=== PATIENT | male | born 1950 | race Caucasian/White ===

== ENCOUNTER 2020-11-09 22:08 | Inpatient (IN) | payer MEDICARE, OTHER ==
[2020-11-09] MEDS ORDERED: Atropine Sulfate 1 mg/10 ml Syringe ONE (22:44)
--- NOTE | 2020-11-09 22:58 | RAD ---
RADIOGRAPH CHEST 1 VIEW: DATE: 11/09/2020 TIME: 10:43 PM HISTORY: 70-year-old male with dyspnea COMPARISON: 08/05/2006 FINDINGS: New mild infiltrate at right medial base. Questionable mild infiltrate at the left medial base. No cardiomegaly. No pneumothorax. No pulmonary edema. IMPRESSION: Right basilar infiltrate: Suggestive of mild or early pneumonia
[2020-11-09 23:04] LABS: ALT (SGPT) 11 U/L (8-55); AST (SGOT) 17 U/L (5-34); Albumin 3.3 g/dL (3.4-4.8); Alkaline Phosphatase 49 U/L (40-110); Anion Gap 13 mmol/L (10-20); BUN (Urea Nitrogen) 18 mg/dL (8.4-25.7); Bilirubin, Total 0.8 mg/dL (0.2-1.2); Calc. Creatinine Clearance 0 mL/min (70-130); Calcium 7.9 mg/dL (7.8-10.44); Carbon Dioxide 26 mmol/L (23-31); Chloride 102 mmol/L (98-107); Globulin 2.9 g/dL (2.4-3.5); Glucose 130 mg/dL (80-115); Lipase 93 U/L (8-78); Magnesium 1.3 mg/dL (1.6-2.6); Potassium 3.7 mmol/L (3.5-5.1); Protein, Total 6.2 g/dL (5.8-8.1); Sodium 137 mmol/L (136-145)
[2020-11-09 23:09] LABS: Digoxin 0.97 ng/mL (0.8-2.0)
[2020-11-09 23:33] LABS: CKMB 2.1 ng/mL (0-6.6)
[2020-11-10] MEDS ORDERED: cloNIDine 0.1 MG TAB ONE (00:25)
[2020-11-10] MEDS ORDERED: Ondansetron PF 4 MG/2 ML Vial IVP PRN (01:17)
[2020-11-10] MEDS ORDERED: Dextrose 50% Abboject 50 ML SYRINGE SLOW IVP PRN (01:17)
[2020-11-10] MEDS ORDERED: HYDROcodone/Acetaminophen 7.5/325 mg Tablet PO PRN (01:17)
[2020-11-10] MEDS ORDERED: Dextrose 5% in Water 1,000 ML IV PRN (01:17)
[2020-11-10] MEDS ORDERED: Guaifenesin DM 100-10/5 ML UDCUP PO PRN (01:17)
[2020-11-10] MEDS ORDERED: Bisacodyl 5 MG TAB PO PRN (01:17)
[2020-11-10] MEDS ORDERED: hydrALAZINE 20 MG/ML VIAL SLOW IVP PRN (01:24)
--- NOTE | 2020-11-10 01:29 | PDOC.HHP ---
Hospitalist HPI Cough History of Present Illness: 70-year-old male with past medical history of hypertension, diabetes mellitus type 2, Parkinson's disease, alf resident since the last 1 year admitted from alf today because of reported shortness of breath. Patient denies worsening shortness of breath. He admits to cough which he states started today. He denies any sputum. He denies any sick contact. He denies any fever or chills. On arrival in the ED chest x-ray shows right basilar infiltrate. Patient has been admitted for pneumonia rule out Covid infection. He denies any nausea vomiting now. Allergies/Adverse Reactions: Allergy/AdvReac Type Severity Reaction Status Date / Time No Known Allergies Allergy Unverified 11/10/20 01:25 Past History: PMHx: Parkinson's disease Diabetes mellitus Hypertension PSHx: Noncontributory FHx: Family history of hypertension Social: custodial resident, denies any tobacco or alcohol use Hospitalist HPI ROS All other systems reviewed; all pertinent +/- noted in HPI/Subj (All others x14 - except as mentioned above.) Hospitalist Exam General Appearance: NAD, ill appearing General - other findings: Elderly male, calm, on room air Eye: PERRL, anicteric sclera ENT: normocephalic atraumatic, no oropharyngeal lesions Neck: supple, symmetric, no JVD Heart: RRR, no murmur, no gallops Respiratory: normal chest expansion, no tachypnea Gastrointestinal: soft, non-tender Extremities: no cyanosis, no clubbing Skin: normal turgor, no lesions Neurological: cranial nerve grossly intact, normal sensation to touch Musculoskeletal: normal tone, normal strength Psychiatric: normal affect, normal behavior Psychiatric - other findings: tremors of hands Hospitalist Results Result Diagrams: 11/09/20 22:39 Lab results: Laboratory Last Values Sodium 137 mmol/L (136-145) 11/09/20 22:39 Potassium 3.7 mmol/L (3.5-5.1) 11/09/20 22:39 Chloride 102 mmol/L (98-107) 11/09/20 22:39 Carbon Dioxide 26 mmol/L (23-31) 11/09/20 22:39 Anion Gap 13 mmol/L (10-20) 11/09/20 22:39 BUN 18 mg/dL (8.4-25.7) 11/09/20 22:39 Creatinine 1.10 mg/dL (0.7-1.3) 11/09/20 22:39 Estimated GFR (MDRD) 67 11/09/20 22:39 Glucose 130 mg/dL (80-115) H 11/09/20 22:39 Calcium 7.9 mg/dL (7.8-10.44) 11/09/20 22:39 Magnesium 1.3 mg/dL (1.6-2.6) L 11/09/20 22:39 Total Bilirubin 0.8 mg/dL (0.2-1.2) 11/09/20 22:39 AST 17 U/L (5-34) 11/09/20 22:39 ALT 11 U/L (8-55) 11/09/20 22:39 Alkaline Phosphatase 49 U/L (40-110) 11/09/20 22:39 CK-MB (CK-2) 2.1 ng/mL (0-6.6) 11/09/20 22:39 Troponin I 0.034 ng/mL (< 0.028) H 11/09/20 22:39 B-Natriuretic Peptide 417.0 pg/mL (0-100) H 11/09/20 22:39 Serum Total Protein 6.2 g/dL (5.8-8.1) 11/09/20 22:39 Albumin 3.3 g/dL (3.4-4.8) L 11/09/20 22:39 Globulin 2.9 g/dL (2.4-3.5) 11/09/20 22:39 Albumin/Globulin Ratio 1.1 g/dL (1.2-2.2) L 11/09/20 22:39 Lipase 93 U/L (8-78) H 11/09/20 22:39 TSH 3rd Generation 3.4953 uIU/mL (0.35-4.94) 11/09/20 22:39 Digoxin 0.97 ng/mL (0.8-2.0) 11/09/20 22:39 Hospitalist H&P A/P (1) Parkinsons disease Code(s): G20 - PARKINSON'S DISEASE Status: Acute (2) Right lower lobe pneumonia Code(s): J18.9 - PNEUMONIA, UNSPECIFIED ORGANISM Status: Acute (3) Hypertensive urgency Code(s): I16.0 - HYPERTENSIVE URGENCY Status: Acute (4) Diabetes mellitus Code(s): E11.9 - TYPE 2 DIABETES MELLITUS WITHOUT COMPLICATIONS Status: Acute Plan: #Right base pneumoniapossibly due to community-acquired pneumonia versus Covid infection Given alf resident, will place in isolation protocol for now Obtain Covid screening Start up required to biotics with Rocephin and Zithromax Do supplemental oxygen as needed Continue to monitor pulse ox We will admit to telemetry under observation Obtain pending CBC, influenza screen as well as blood culture We will also obtain sputum culture for sensitivity Hypertensive urgencyasymptomatic Given mild bradycardia, will start patient on hydralazine Obtain home medication regimen and adjust History of Parkinson'sresume home meds Diabetes mellituswe will do insulin sliding scale with Accu-Cheks for now DVT prophylaxissubcutaneous Lovenox Advanced directivepatient requesting trial of CPR Dispositionpossible hospital stay for 24 to 48 hours, may be able to DC back to alf if negative Covid as well as still not requiring supplemental oxygen in the next 24 hours
[2020-11-10] MEDS ORDERED: hydrALAZINE 25 MG TAB PO SCH (01:30)
[2020-11-10 02:34] LABS: Troponin I 0.038 ng/mL (< 0.028)
[2020-11-10 03:27] LABS: SARS-CoV-2 NAA Rapid Test DETECTED (NotDetected)
[2020-11-10] MEDS ORDERED: cefTRIAXone\\ROCEPHIN 1 GM VIAL ONE (03:51)
[2020-11-10] MEDS: cefTRIAXone\\ROCEPHIN 1 GM in Sodium Chloride 0.9% 100 ML IVPB SCH (04:16)
[2020-11-10 04:44] LABS: #Eosinphils 0.1 thou/uL (0.0-0.7); #Lymphocytes 0.9 thou/uL (1.20-3.40); #Monocytes 0.4 thou/uL (0.11-0.59); #Neutrophils 3.8 thou/uL (1.40-6.50); %Basophils 0.3 % (0.0-1.0); %Lymphocytes 16.7 % (21.0-51.0); %Monocytes 7.1 % (0.0-10.0); %Neutrophils 73.9 % (42.0-75.0); Hemoglobin 9.3 g/dL (14.0-18.0); Mean Corpuscular HGB CONC 33.2 g/dL (32.0-36.0); Mean Corpuscular Hemoglobin 29.1 pg (27.0-31.0); Mean Corpuscular Volume 87.6 fL (78.0-98.0); Mean Platelet Volume 8.7 fL (7.4-10.4); Platelet Count 189 thou/uL (130-400); RBC Distribution Width 14.3 % (11.5-14.5); Red Blood Cell (RBC) Count 3.19 mill/uL (4.70-6.10); White Blood Cell (WBC) Count 5.1 thou/uL (4.8-10.8)
[2020-11-10 05:09] LABS: Anion Gap 11 mmol/L (10-20); BUN (Urea Nitrogen) 17 mg/dL (8.4-25.7); Calc. Creatinine Clearance 0 mL/min (70-130); Calcium 8.2 mg/dL (7.8-10.44); Carbon Dioxide 28 mmol/L (23-31); Chloride 103 mmol/L (98-107); Glucose 141 mg/dL (80-115); Potassium 3.6 mmol/L (3.5-5.1); Sodium 138 mmol/L (136-145)
[2020-11-10 05:32] LABS: Troponin I 0.037 ng/mL (< 0.028)
[2020-11-10] MEDS ORDERED: Azithromycin 500 MG VIAL ONE (06:29)
[2020-11-10] MEDS: Azithromycin 500 MG in Sodium Chloride 0.9% 250 ML 250 ML IVPB SCH (06:35)
[2020-11-10] MEDS ORDERED: Famotidine 20 MG TAB ONE (08:42)
[2020-11-10] MEDS ORDERED: Enoxaparin Sodium 40 MG/0.4 ML SYRINGE ONE (08:42)
[2020-11-10] MEDS ORDERED: hydrALAZINE 25 MG TAB ONE ×2 (08:42→16:08)
[2020-11-10] MEDS: Enoxaparin Sodium 40 MG/0.4 ML SYRINGE SC SCH (08:49)
[2020-11-10] MEDS: hydrALAZINE 25 MG TAB PO SCH ×3 (08:49→21:03)
[2020-11-10] MEDS ORDERED: Famotidine 20 MG TAB PO SCH (09:00)
[2020-11-10] MEDS: Zinc Sulfate 220 MG CAP PO SCH (09:56)
[2020-11-10] MEDS: guaiFENesin ER 600 MG TAB PO SCH ×2 (10:29→21:02)
[2020-11-10] MEDS ORDERED: hydrALAZINE 20 MG/ML VIAL ONE ×2 (11:10→16:26)
[2020-11-10] MEDS ORDERED: Amlodipine 5 MG TAB PO SCH (12:30)
[2020-11-10] MEDS ORDERED: Amlodipine 5 MG TAB ONE (13:33)
[2020-11-10] MEDS ORDERED: HumaLOG 300 UNITS/3 ML VIAL ONE (16:33)
[2020-11-10] MEDS: HumaLOG 300 UNITS/3 ML VIAL SC PRN (16:38)
--- NOTE | 2020-11-10 16:38 | PDOC.HOSPP ---
- Subjective Encounter Date: 11/10/20 (f/u bradycardia) Encounter Time: 16:35 Subjective: Pt remains in the ER awaiting a telemetry bed. Throughout today bp's have been as high as 200's systolic. Pulse has generally been 40's and sinus. Pt reports at the NH that he hasn't felt well - describes it as a change in stool, but not diarrhea. Some feeling like he is going to throw up. He is unable to describe anything else. He currently denies any problems. - Objective Vital Signs & Weight: Vital Signs (12 hours) Temp Pulse Resp BP BP Pulse Ox 11/10/20 16:25 55 L 16 206/101 H 98 11/10/20 16:22 54 L 204/101 H 11/10/20 13:44 54 L 212/87 H 11/10/20 13:43 54 L 212/87 H 11/10/20 12:00 47 L 177/78 H 11/10/20 11:28 44 L 202/85 H 11/10/20 11:24 98 F 44 L 16 187/81 H 100 11/10/20 08:49 47 L 171/66 H 11/10/20 07:50 98.4 F 47 L 14 168/75 H 100 Result Diagrams: 11/10/20 04:33 11/10/20 04:33 Additional Labs: Accuchecks 11/10/20 11/10/20 16:17 11:16 POC Glucose 192 H 128 H EKG Reviewed by me: Yes (tele - sinus 40-50's) Hospitalist ROS - Medication Medications: Active Medications Generic Name Dose Route Start Last Admin Trade Name Cristopher PRN Reason Stop Dose Admin Enoxaparin Sodium 40 mg 11/10/20 09:00 11/10/20 08:49 Enoxaparin Sodium 40 Mg/0.4 Ml Syringe SC 40 mg 0900 MELVIN Administration Guaifenesin 1,200 mg 11/10/20 09:00 11/10/20 10:29 Guaifenesin Er 600 Mg Tab PO 1,200 mg Q12HR MELVIN Administration Hydralazine HCl 75 mg 11/10/20 09:00 11/10/20 16:22 Hydralazine 25 Mg Tab PO 75 mg TID MELVIN Administration Ceftriaxone Sodium 1 gm/ 100 mls @ 200 mls/hr 11/10/20 01:30 11/10/20 04:16 Sodium Chloride IVPB 100 mls Q24HR MELVIN Administration Azithromycin 500 mg/ Sodium 250 mls @ 250 mls/hr 11/10/20 02:00 11/10/20 06:35 Chloride IVPB 250 mls Q24HR MELVIN Administration Sodium Chloride 10 ml 11/10/20 09:00 11/10/20 08:50 Flush - Normal Saline 10 Ml Syringe IVF 10 ml Q12HR MELVIN Administration Zinc Sulfate 220 mg 11/10/20 09:00 11/10/20 09:56 Zinc Sulfate 220 Mg Cap PO 220 mg DAILY MELVIN Administration Hospitalist Exam Vitals: Vital Signs (12 hours) Temp Pulse Resp BP BP Pulse Ox 11/10/20 16:25 55 L 16 206/101 H 98 11/10/20 16:22 54 L 204/101 H 11/10/20 13:44 54 L 212/87 H 11/10/20 13:43 54 L 212/87 H 11/10/20 12:00 47 L 177/78 H 11/10/20 11:28 44 L 202/85 H 11/10/20 11:24 98 F 44 L 16 187/81 H 100 11/10/20 08:49 47 L 171/66 H 11/10/20 07:50 98.4 F 47 L 14 168/75 H 100 General Appearance: NAD Heart: RRR, no murmur Respiratory: CTAB, no wheezes, no rales, no ronchi Gastrointestinal: soft, non-tender, non-distended, normal bowel sounds Extremities: no cyanosis, no clubbing Extremities - other findings: 1+ edema bilateral Psychiatric: normal affect Hosp A/P (1) Right lower lobe pneumonia Code(s): J18.9 - PNEUMONIA, UNSPECIFIED ORGANISM Status: Acute (2) COVID-19 virus infection Code(s): U07.1 - COVID-19 Status: Acute (3) Bradycardia Code(s): R00.1 - BRADYCARDIA, UNSPECIFIED Status: Acute (4) Diabetes mellitus Code(s): E11.9 - TYPE 2 DIABETES MELLITUS WITHOUT COMPLICATIONS Status: Chronic Qualifiers: Diabetes mellitus type: type 2 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 - continue hydralazine oral - resume losartan - amlodipine added today - prn IV hydralazine DM - appears controlled - hold on lantus as his blood sugars are well controlled parkinsons disease - ordered home med - uncertain if this is available here dyslipidemia - continue statin Anemia - uncertain etiology and chronicity - trend hemoglobin here and if stable defer evaluation to the outpatient setting dvt prophy - lovenox gi prophy - not indicated code status full reviewed plan of care with patient, no questions or further needs at end of ev al.
[2020-11-10] MEDS: hydrALAZINE 20 MG/ML VIAL SLOW IVP PRN (17:41)
[2020-11-10] MEDS ORDERED: Losartan 25 MG TAB PO SCH (17:45)
[2020-11-10 18:45] VITALS: BMI 28.4
[2020-11-10] MEDS: Gabapentin 100 MG CAP PO SCH (21:00)
[2020-11-10] MEDS ORDERED: (Cariprazine Hcl [Vraylar] 1.5 MG Capsule) PO SCH (21:00)
[2020-11-10] MEDS: Rosuvastatin 20 MG TAB PO SCH (21:01)
[2020-11-10] MEDS: PARoxetine 20 MG TAB PO SCH (21:03)
[2020-11-10] MEDS: Amlodipine 5 MG TAB PO SCH (21:05)
[2020-11-11] MEDS: cefTRIAXone\\ROCEPHIN 1 GM in Sodium Chloride 0.9% 100 ML IVPB SCH (00:51)
[2020-11-11] MEDS: hydrALAZINE 20 MG/ML VIAL SLOW IVP PRN ×2 (00:51→13:01)
[2020-11-11] MEDS: Azithromycin 500 MG in Sodium Chloride 0.9% 250 ML 250 ML IVPB SCH (02:12)
[2020-11-11] MEDS: Amlodipine 5 MG TAB PO SCH ×2 (03:13→21:37)
[2020-11-11 06:22] LABS: #Eosinphils 0.1 thou/uL (0.0-0.7); #Lymphocytes 0.9 thou/uL (1.20-3.40); #Monocytes 0.5 thou/uL (0.11-0.59); %Basophils 0.1 % (0.0-1.0); %Eosinophils 1.4 % (0.0-10.0); %Lymphocytes 9.2 % (21.0-51.0); %Monocytes 4.7 % (0.0-10.0); %Neutrophils 84.5 % (42.0-75.0); Hemoglobin 9.3 g/dL (14.0-18.0); Mean Corpuscular Hemoglobin 29.5 pg (27.0-31.0); Mean Corpuscular Volume 86.7 fL (78.0-98.0); Mean Platelet Volume 8.3 fL (7.4-10.4); Platelet Count 234 thou/uL (130-400); RBC Distribution Width 14.9 % (11.5-14.5); Red Blood Cell (RBC) Count 3.15 mill/uL (4.70-6.10); White Blood Cell (WBC) Count 9.5 thou/uL (4.8-10.8)
[2020-11-11] MEDS: HumaLOG 300 UNITS/3 ML VIAL SC PRN ×3 (06:28→16:20)
[2020-11-11] MEDS: Levothyroxine Sodium 50 MCG TAB PO SCH (06:30)
[2020-11-11 06:37] LABS: Anion Gap 16 mmol/L (10-20); BUN (Urea Nitrogen) 16 mg/dL (8.4-25.7); Calc. Creatinine Clearance 76 mL/min (70-130); Calcium 8.5 mg/dL (7.8-10.44); Carbon Dioxide 25 mmol/L (23-31); Chloride 102 mmol/L (98-107); Glucose 211 mg/dL (80-115); Potassium 3.8 mmol/L (3.5-5.1); Sodium 139 mmol/L (136-145)
[2020-11-11] MEDS: Zinc Sulfate 220 MG CAP PO SCH (07:34)
[2020-11-11] MEDS: hydrALAZINE 25 MG TAB PO SCH ×3 (07:34→21:39)
[2020-11-11] MEDS: Enoxaparin Sodium 40 MG/0.4 ML SYRINGE SC SCH (07:35)
[2020-11-11] MEDS: Losartan 25 MG TAB PO SCH (07:35)
[2020-11-11] MEDS: guaiFENesin ER 600 MG TAB PO SCH ×2 (07:35→21:39)
--- NOTE | 2020-11-11 08:04 | PDOC.HOSPP ---
- Subjective Encounter Date: 11/11/20 Encounter Time: 07:55 Subjective: alert, no cough, fever, sob - Objective Vital Signs & Weight: Vital Signs (12 hours) Temp Pulse Resp BP BP Pulse Ox 11/11/20 07:34 66 158/74 H 11/11/20 06:05 18 11/11/20 06:00 98.3 F 66 18 158/74 H 98 11/11/20 05:58 98.3 F 66 18 158/74 H 98 11/11/20 04:00 98.5 F 76 25 H 192/88 H 100 11/11/20 03:13 72 192/84 H 11/11/20 03:00 192/80 H 11/11/20 02:00 97.9 F 72 20 192/84 H 98 11/11/20 01:17 97 11/11/20 01:00 63 20 97 11/11/20 00:51 62 11/11/20 00:00 97.8 F 65 18 208/75 H 97 11/10/20 23:00 98.0 F 11/10/20 21:05 62 11/10/20 21:03 62 11/10/20 20:00 97.9 F 89 20 190/86 H 199/83 H 99 Weight Admit Weight 204 lb Weight 204 lb I&O: 11/10/20 11/11/20 11/12/20 06:59 06:59 06:59 Intake Total 280 Output Total 900 Balance -620 Result Diagrams: 11/11/20 05:51 11/11/20 05:51 Additional Labs: Accuchecks 11/11/20 11/10/20 11/10/20 05:53 19:50 16:17 POC Glucose 205 H 198 H 192 H 11/10/20 11:16 POC Glucose 128 H Hospitalist ROS - Medication Medications: Active Medications Generic Name Dose Route Start Last Admin Trade Name Freq PRN Reason Stop Dose Admin Amlodipine Besylate 5 mg 11/10/20 21:00 11/11/20 03:13 Amlodipine 5 Mg Tab PO 5 mg BID MELVIN Administration Enoxaparin Sodium 40 mg 11/10/20 09:00 11/11/20 07:35 Enoxaparin Sodium 40 Mg/0.4 Ml Syringe SC 40 mg 09 MELVIN Administration Gabapentin 100 mg 11/10/20 21:00 11/10/20 21:00 Gabapentin 100 Mg Cap PO 100 mg HS MELVIN Administration Guaifenesin 1,200 mg 11/10/20 09:00 11/11/20 07:35 Guaifenesin Er 600 Mg Tab PO 1,200 mg Q12HR MELVIN Administration Hydralazine HCl 75 mg 11/10/20 09:00 11/11/20 07:34 Hydralazine 25 Mg Tab PO 75 mg TID MELVIN Administration Hydralazine HCl 20 mg 11/10/20 12:24 11/11/20 00:51 Hydralazine 20 Mg/Ml Vial SLOW IVP 20 mg Q4H PRN Administration SBP Greater Than 180 Ceftriaxone Sodium 1 gm/ 100 mls @ 200 mls/hr 11/10/20 01:30 11/11/20 00:51 Sodium Chloride IVPB 100 mls Q24HR MELVIN Administration Azithromycin 500 mg/ Sodium 250 mls @ 250 mls/hr 11/10/20 02:00 11/11/20 02:12 Chloride IVPB 250 mls Q24HR MELVIN Administration Insulin Human Lispro 0 units 11/10/20 01:17 11/11/20 06:28 Humalog 300 Units/3 Ml Vial SC 4 unit .MODERATE SLIDING SC PRN Administration Moderate Correctional Scale Levothyroxine Sodium 50 mcg 11/11/20 06:00 11/11/20 06:30 Levothyroxine Sodium 50 Mcg Tab PO 50 mcg 0600 MELVIN Administration Losartan Potassium 25 mg 11/11/20 09:00 11/11/20 07:35 Losartan 25 Mg Tab PO 25 mg DAILY MELVIN Administration Paroxetine HCl 40 mg 11/10/20 21:00 11/10/20 21:03 Paroxetine 20 Mg Tab PO 40 mg HS MELVIN Administration Rosuvastatin Calcium 20 mg 11/10/20 21:00 11/10/20 21:01 Rosuvastatin 20 Mg Tab PO 20 mg HS MELVIN Administration Sodium Chloride 10 ml 11/10/20 09:00 11/11/20 07:36 Flush - Normal Saline 10 Ml Syringe IVF 10 ml Q12HR MELVIN Administration Zinc Sulfate 220 mg 11/10/20 09:00 11/11/20 07:34 Zinc Sulfate 220 Mg Cap PO 220 mg DAILY MELVIN Administration Hospitalist Exam Vitals: Vital Signs (12 hours) Temp Pulse Resp BP BP Pulse Ox 11/11/20 07:34 66 158/74 H 11/11/20 06:05 18 11/11/20 06:00 98.3 F 66 18 158/74 H 98 11/11/20 05:58 98.3 F 66 18 158/74 H 98 11/11/20 04:00 98.5 F 76 25 H 192/88 H 100 11/11/20 03:13 72 192/84 H 11/11/20 03:00 192/80 H 11/11/20 02:00 97.9 F 72 20 192/84 H 98 11/11/20 01:17 97 11/11/20 01:00 63 20 97 11/11/20 00:51 62 11/11/20 00:00 97.8 F 65 18 208/75 H 97 11/10/20 23:00 98.0 F 11/10/20 21:05 62 11/10/20 21:03 62 11/10/20 20:00 97.9 F 89 20 190/86 H 199/83 H 99 Weight Admit Weight 204 lb Weight 204 lb General Appearance: awake alert Neck: no JVD Heart: RRR, no murmur Respiratory - other findings: coarse rales RL chest, OW clear BS Gastrointestinal: soft, normal bowel sounds Extremities: no edema Hosp A/P (1) Anemia Code(s): D64.9 - ANEMIA, UNSPECIFIED Status: Acute Qualifiers: Anemia type: unspecified type Qualified Code(s): D64.9 - Anemia, unspecified (2) Bradycardia Code(s): R00.1 - BRADYCARDIA, UNSPECIFIED Status: Acute (3) COVID-19 virus infection Code(s): U07.1 - COVID-19 Status: Acute (4) Hypertensive urgency Code(s): I16.0 - HYPERTENSIVE URGENCY Status: Acute (5) Right lower lobe pneumonia Code(s): J18.9 - PNEUMONIA, UNSPECIFIED ORGANISM Status: Acute Qualifiers: Pneumonia type: due to Pneumococcus Qualified Code(s): J13 - Pneumonia due to Streptococcus pneumoniae (6) Diabetes mellitus Code(s): E11.9 - TYPE 2 DIABETES MELLITUS WITHOUT COMPLICATIONS Status: Chronic Qualifiers: Diabetes mellitus type: type 2 Diabetes mellitus fpc insulin use: with fpc use Diabetes mellitus complication status: without complication Qualified Code(s): E11.9 - Type 2 diabetes mellitus without complications; Z79.4 - laborer marine terminal (current) use of insulin (7) Dyslipidemia Code(s): E78.5 - HYPERLIPIDEMIA, UNSPECIFIED Status: Chronic (8) Parkinsons disease Code(s): G20 - PARKINSON'S DISEASE Status: Chronic - Plan COVID- no sob, etc-watch RLL PNA-cont current antibx x 72 hrs bradycardia resolved off metoprolol HTN- cont current tx, monitor BP DM 2- cont accu/ss/ lantus held at present
[2020-11-11] MEDS ORDERED: Amlodipine 5 MG TAB PO SCH (09:00)
[2020-11-11] MEDS: Acetaminophen 325 MG TAB PO PRN (13:00)
[2020-11-11] MEDS: Gabapentin 100 MG CAP PO SCH (21:39)
[2020-11-11] MEDS: PARoxetine 20 MG TAB PO SCH (21:40)
[2020-11-11] MEDS: Rosuvastatin 20 MG TAB PO SCH (21:40)
[2020-11-12] MEDS: hydrALAZINE 20 MG/ML VIAL SLOW IVP PRN ×2 (00:35→12:55)
[2020-11-12] MEDS: cefTRIAXone\\ROCEPHIN 1 GM in Sodium Chloride 0.9% 100 ML IVPB SCH (03:40)
[2020-11-12] MEDS: Azithromycin 500 MG in Sodium Chloride 0.9% 250 ML 250 ML IVPB SCH (03:41)
[2020-11-12] MEDS: Levothyroxine Sodium 50 MCG TAB PO SCH (06:29)
[2020-11-12] MEDS: Enoxaparin Sodium 40 MG/0.4 ML SYRINGE SC SCH (07:49)
[2020-11-12] MEDS: Amlodipine 5 MG TAB PO SCH ×2 (07:49→20:37)
[2020-11-12] MEDS: hydrALAZINE 25 MG TAB PO SCH ×3 (07:49→20:34)
[2020-11-12] MEDS: guaiFENesin ER 600 MG TAB PO SCH ×2 (07:49→20:37)
[2020-11-12] MEDS: Losartan 25 MG TAB PO SCH (07:50)
[2020-11-12] MEDS: Zinc Sulfate 220 MG CAP PO SCH (07:50)
--- NOTE | 2020-11-12 12:23 | PDOC.HOSPP ---
- Subjective Encounter Date: 11/12/20 Encounter Time: 12:23 Subjective: minimal BAEZ, dry cough - Objective Vital Signs & Weight: Vital Signs (12 hours) Temp Pulse Resp BP BP BP Pulse Ox 11/12/20 11:02 98.2 F 81 16 200/86 H 97 11/12/20 08:00 98.6 F 78 20 163/72 H 96 11/12/20 07:49 86 11/12/20 03:58 98.6 F 86 20 180/76 H 97 11/12/20 03:09 94 L 11/12/20 00:35 77 189/79 H Weight Admit Weight 204 lb Weight 204 lb I&O: 11/11/20 11/12/20 11/13/20 06:59 06:59 06:59 Intake Total 280 840 Output Total 900 800 Balance -620 40 Result Diagrams: 11/11/20 05:51 11/11/20 05:51 Additional Labs: Accuchecks 11/12/20 11/12/20 11/11/20 11:01 05:54 20:14 POC Glucose 253 H 179 H 169 H 11/11/20 15:52 POC Glucose 196 H Hospitalist ROS - Medication Medications: Active Medications Generic Name Dose Route Start Last Admin Trade Name Freq PRN Reason Stop Dose Admin Acetaminophen 650 mg 11/10/20 01:17 11/11/20 13:00 Acetaminophen 325 Mg Tab PO 650 mg Q4H PRN Administration Headache/Fever/Mild Pain (1-3) Amlodipine Besylate 5 mg 11/10/20 21:00 11/12/20 07:49 Amlodipine 5 Mg Tab PO 5 mg BID MELVIN Administration Enoxaparin Sodium 40 mg 11/10/20 09:00 11/12/20 07:49 Enoxaparin Sodium 40 Mg/0.4 Ml Syringe SC 40 mg 0900 MELVIN Administration Gabapentin 100 mg 11/10/20 21:00 11/11/20 21:39 Gabapentin 100 Mg Cap PO 100 mg HS MELVIN Administration Guaifenesin 1,200 mg 11/10/20 09:00 11/12/20 07:49 Guaifenesin Er 600 Mg Tab PO 1,200 mg Q12HR MELVIN Administration Hydralazine HCl 75 mg 11/10/20 09:00 11/12/20 07:49 Hydralazine 25 Mg Tab PO 75 mg TID MELVIN Administration Hydralazine HCl 20 mg 11/10/20 12:24 11/12/20 00:35 Hydralazine 20 Mg/Ml Vial SLOW IVP 20 mg Q4H PRN Administration SBP Greater Than 180 Ceftriaxone Sodium 1 gm/ 100 mls @ 200 mls/hr 11/10/20 01:30 11/12/20 03:40 Sodium Chloride IVPB 100 mls Q24HR MELVIN Administration Azithromycin 500 mg/ Sodium 250 mls @ 250 mls/hr 11/10/20 02:00 11/12/20 03:41 Chloride IVPB 250 mls Q24HR MELVIN Administration Insulin Human Lispro 0 units 11/10/20 01:17 11/11/20 16:20 Humalog 300 Units/3 Ml Vial SC 2 unit .MODERATE SLIDING SC PRN Administration Moderate Correctional Scale Levothyroxine Sodium 50 mcg 11/11/20 06:00 11/12/20 06:29 Levothyroxine Sodium 50 Mcg Tab PO 50 mcg 0600 MELVIN Administration Losartan Potassium 25 mg 11/11/20 09:00 11/12/20 07:50 Losartan 25 Mg Tab PO 25 mg DAILY MELVIN Administration Paroxetine HCl 40 mg 11/10/20 21:00 11/11/20 21:40 Paroxetine 20 Mg Tab PO 40 mg HS MELVIN Administration Rosuvastatin Calcium 20 mg 11/10/20 21:00 11/11/20 21:40 Rosuvastatin 20 Mg Tab PO 20 mg HS MELVIN Administration Sodium Chloride 10 ml 11/10/20 09:00 11/12/20 06:29 Flush - Normal Saline 10 Ml Syringe IVF 10 ml Q12HR MELVIN Administration Zinc Sulfate 220 mg 11/10/20 09:00 11/12/20 07:50 Zinc Sulfate 220 Mg Cap PO 220 mg DAILY MELVIN Administration Hospitalist Exam Vitals: Vital Signs (12 hours) Temp Pulse Resp BP BP BP Pulse Ox 11/12/20 11:02 98.2 F 81 16 200/86 H 97 11/12/20 08:00 98.6 F 78 20 163/72 H 96 11/12/20 07:49 86 11/12/20 03:58 98.6 F 86 20 180/76 H 97 11/12/20 03:09 94 L 11/12/20 00:35 77 189/79 H Weight Admit Weight 204 lb Weight 204 lb General Appearance: awake alert Neck: no JVD Heart: RRR, no murmur Respiratory: CTAB Respiratory - other findings: except scant rales LLL Gastrointestinal: soft, normal bowel sounds Extremities: no edema Hosp A/P (1) Right lower lobe pneumonia Code(s): J18.9 - PNEUMONIA, UNSPECIFIED ORGANISM Status: Acute Qualifiers: Pneumonia type: due to Pneumococcus Qualified Code(s): J13 - Pneumonia due to Streptococcus pneumoniae (2) Anemia Code(s): D64.9 - ANEMIA, UNSPECIFIED Status: Acute Qualifiers: Anemia type: unspecified type Qualified Code(s): D64.9 - Anemia, unspecified (3) Bradycardia Code(s): R00.1 - BRADYCARDIA, UNSPECIFIED Status: Acute (4) COVID-19 virus infection Code(s): U07.1 - COVID-19 Status: Acute (5) Hypertensive urgency Code(s): I16.0 - HYPERTENSIVE URGENCY Status: Acute (6) Diabetes mellitus Code(s): E11.9 - TYPE 2 DIABETES MELLITUS WITHOUT COMPLICATIONS Status: Chronic Qualifiers: Diabetes mellitus type: type 2 Diabetes mellitus senior living 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
[2020-11-12] MEDS: HumaLOG 300 UNITS/3 ML VIAL SC PRN ×2 (12:30→17:15)
[2020-11-12] MEDS: Acetaminophen 325 MG TAB PO PRN ×2 (14:29→20:38)
[2020-11-12] MEDS ORDERED: cloNIDine 0.2mg/24 Hour PATCH TD SCH (20:00)
[2020-11-12] MEDS: Rosuvastatin 20 MG TAB PO SCH (20:34)
[2020-11-12] MEDS: Gabapentin 100 MG CAP PO SCH (20:34)
[2020-11-12] MEDS: PARoxetine 20 MG TAB PO SCH (20:36)
[2020-11-13] MEDS: Azithromycin 500 MG in Sodium Chloride 0.9% 250 ML 250 ML IVPB SCH (01:00)
[2020-11-13] MEDS: cefTRIAXone\\ROCEPHIN 1 GM in Sodium Chloride 0.9% 100 ML IVPB SCH (02:25)
[2020-11-13] MEDS: hydrALAZINE 20 MG/ML VIAL SLOW IVP PRN (02:41)
[2020-11-13] MEDS: Levothyroxine Sodium 50 MCG TAB PO SCH (05:35)
[2020-11-13] MEDS: HumaLOG 300 UNITS/3 ML VIAL SC PRN ×4 (06:15→22:10)
[2020-11-13] MEDS ORDERED: cloNIDine 0.2mg/24 Hour PATCH TD SCH (09:00)
[2020-11-13] MEDS: Amlodipine 5 MG TAB PO SCH ×2 (10:16→20:08)
[2020-11-13] MEDS: Enoxaparin Sodium 40 MG/0.4 ML SYRINGE SC SCH (10:16)
[2020-11-13] MEDS: hydrALAZINE 25 MG TAB PO SCH ×3 (10:17→20:06)
[2020-11-13] MEDS: guaiFENesin ER 600 MG TAB PO SCH ×2 (10:17→22:14)
[2020-11-13] MEDS: Losartan 25 MG TAB PO SCH (10:17)
[2020-11-13] MEDS: Zinc Sulfate 220 MG CAP PO SCH (10:18)
--- NOTE | 2020-11-13 11:15 | PDOC.HOSPP ---
- Subjective Encounter Date: 11/13/20 Encounter Time: 11:12 Subjective: no cough, minimal BAEZ - Objective Vital Signs & Weight: Vital Signs (12 hours) Temp Pulse Resp BP BP BP Pulse Ox 11/13/20 10:20 89 175/85 H 11/13/20 10:17 81 11/13/20 10:16 81 11/13/20 07:41 98.2 F 81 20 186/86 H 98 11/13/20 05:54 98.3 F 97 16 189/83 H 95 11/13/20 02:41 78 183/83 H 11/13/20 02:35 78 183/83 H 11/13/20 00:00 98.8 F 69 18 211/93 H 98 Weight Admit Weight 204 lb Weight 201 lb 12.8 oz I&O: 11/12/20 11/13/20 11/14/20 06:59 06:59 06:59 Intake Total 840 917 Output Total 800 1051 400 Balance 40 -134 -400 Result Diagrams: 11/11/20 05:51 11/11/20 05:51 Additional Labs: Accuchecks 11/13/20 11/13/20 11/12/20 10:48 06:07 23:48 POC Glucose 268 H 217 H 239 H 11/12/20 11/12/20 21:11 16:40 POC Glucose 275 H 226 H Hospitalist ROS - Medication Medications: Active Medications Generic Name Dose Route Start Last Admin Trade Name Freq PRN Reason Stop Dose Admin Acetaminophen 650 mg 11/10/20 01:17 11/12/20 20:38 Acetaminophen 325 Mg Tab PO 650 mg Q4H PRN Administration Headache/Fever/Mild Pain (1-3) Amlodipine Besylate 5 mg 11/10/20 21:00 11/13/20 10:16 Amlodipine 5 Mg Tab PO 5 mg BID MELVIN Administration Clonidine 0.2 mg 11/12/20 20:00 11/12/20 20:40 Clonidine 0.2mg/24 Hour Patch TD 0.2 mg Q7D MELVIN Administration Enoxaparin Sodium 40 mg 11/10/20 09:00 11/13/20 10:16 Enoxaparin Sodium 40 Mg/0.4 Ml Syringe SC 40 mg 0900 MELVIN Administration Gabapentin 100 mg 11/10/20 21:00 11/12/20 20:34 Gabapentin 100 Mg Cap PO 100 mg HS MELVIN Administration Guaifenesin 1,200 mg 11/10/20 09:00 11/13/20 10:17 Guaifenesin Er 600 Mg Tab PO 1,200 mg Q12HR MELVIN Administration Hydralazine HCl 75 mg 11/10/20 09:00 11/13/20 10:17 Hydralazine 25 Mg Tab PO 75 mg TID MELVIN Administration Hydralazine HCl 20 mg 11/10/20 12:24 11/13/20 02:41 Hydralazine 20 Mg/Ml Vial SLOW IVP 20 mg Q4H PRN Administration SBP Greater Than 180 Ceftriaxone Sodium 1 gm/ 100 mls @ 200 mls/hr 11/10/20 01:30 11/13/20 02:25 Sodium Chloride IVPB 100 mls Q24HR MELVIN Administration Azithromycin 500 mg/ Sodium 250 mls @ 250 mls/hr 11/10/20 02:00 11/13/20 01:00 Chloride IVPB 250 mls Q24HR MELVIN Administration Insulin Human Lispro 0 units 11/10/20 01:17 11/13/20 06:15 Humalog 300 Units/3 Ml Vial SC 4 unit .MODERATE SLIDING SC PRN Administration Moderate Correctional Scale Levothyroxine Sodium 50 mcg 11/11/20 06:00 11/13/20 05:35 Levothyroxine Sodium 50 Mcg Tab PO 50 mcg 0600 MELVIN Administration Losartan Potassium 25 mg 11/11/20 09:00 11/13/20 10:17 Losartan 25 Mg Tab PO 25 mg DAILY MELVIN Administration Paroxetine HCl 40 mg 11/10/20 21:00 11/12/20 20:36 Paroxetine 20 Mg Tab PO 40 mg HS MELVIN Administration Rosuvastatin Calcium 20 mg 11/10/20 21:00 11/12/20 20:34 Rosuvastatin 20 Mg Tab PO 20 mg HS MELVIN Administration Sodium Chloride 10 ml 11/10/20 09:00 11/13/20 10:17 Flush - Normal Saline 10 Ml Syringe IVF 10 ml Q12HR MELVIN Administration Zinc Sulfate 220 mg 11/10/20 09:00 11/13/20 10:18 Zinc Sulfate 220 Mg Cap PO 220 mg DAILY MELVIN Administration Hospitalist Exam Vitals: Vital Signs (12 hours) Temp Pulse Resp BP BP BP Pulse Ox 11/13/20 10:20 89 175/85 H 11/13/20 10:17 81 11/13/20 10:16 81 11/13/20 07:41 98.2 F 81 20 186/86 H 98 11/13/20 05:54 98.3 F 97 16 189/83 H 95 11/13/20 02:41 78 183/83 H 11/13/20 02:35 78 183/83 H 11/13/20 00:00 98.8 F 69 18 211/93 H 98 Weight Admit Weight 204 lb Weight 201 lb 12.8 oz General Appearance: awake alert Neck: no JVD Heart: RRR Respiratory: CTAB Gastrointestinal: soft, normal bowel sounds Extremities: no edema Hosp A/P (1) Right lower lobe pneumonia Code(s): J18.9 - PNEUMONIA, UNSPECIFIED ORGANISM Status: Acute Qualifiers: Pneumonia type: due to Pneumococcus Qualified Code(s): J13 - Pneumonia due to Streptococcus pneumoniae (2) Anemia Code(s): D64.9 - ANEMIA, UNSPECIFIED Status: Acute Qualifiers: Anemia type: unspecified type Qualified Code(s): D64.9 - Anemia, unspecified (3) Bradycardia Code(s): R00.1 - BRADYCARDIA, UNSPECIFIED Status: Acute (4) COVID-19 virus infection Code(s): U07.1 - COVID-19 Status: Acute (5) Hypertensive urgency Code(s): I16.0 - HYPERTENSIVE URGENCY Status: Acute (6) Diabetes mellitus Code(s): E11.9 - TYPE 2 DIABETES MELLITUS WITHOUT COMPLICATIONS Status: Chronic Qualifiers: Diabetes mellitus type: type 2 Diabetes mellitus saxophone player insulin use: with saxophone player use Diabetes mellitus complication status: without complication Qualified Code(s): E11.9 - Type 2 diabetes mellitus without complications; 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
[2020-11-13] MEDS: Gabapentin 100 MG CAP PO SCH (20:05)
[2020-11-13] MEDS: Rosuvastatin 20 MG TAB PO SCH (20:06)
[2020-11-13] MEDS: PARoxetine 20 MG TAB PO SCH (20:07)
[2020-11-14] MEDS: cefTRIAXone\\ROCEPHIN 1 GM in Sodium Chloride 0.9% 100 ML IVPB SCH (01:02)
[2020-11-14] MEDS: Azithromycin 500 MG in Sodium Chloride 0.9% 250 ML 250 ML IVPB SCH (01:56)
[2020-11-14] MEDS: Levothyroxine Sodium 50 MCG TAB PO SCH (05:43)
[2020-11-14] MEDS: HumaLOG 300 UNITS/3 ML VIAL SC PRN ×4 (05:57→20:50)
[2020-11-14] MEDS: Amlodipine 5 MG TAB PO SCH ×2 (08:00→20:46)
[2020-11-14] MEDS: Losartan 25 MG TAB PO SCH (08:00)
[2020-11-14] MEDS: guaiFENesin ER 600 MG TAB PO SCH ×2 (08:01→20:46)
[2020-11-14] MEDS: hydrALAZINE 25 MG TAB PO SCH ×3 (08:01→20:44)
[2020-11-14] MEDS: Zinc Sulfate 220 MG CAP PO SCH (08:01)
[2020-11-14] MEDS: Enoxaparin Sodium 40 MG/0.4 ML SYRINGE SC SCH (08:01)
--- NOTE | 2020-11-14 12:32 | RAD ---
XR Chest 1 View Portable History: Covid pneumonia Comparison: Radiograph 5 days prior Findings: Slight improved right basilar lung aeration. No pneumothorax. Heart size is enlarged. No pn eumomediastinum. Impression: Slight improved bibasilar lung aeration.
--- NOTE | 2020-11-14 15:08 | PDOC.HOSPP ---
- Subjective Encounter Date: 11/14/20 Encounter Time: 15:06 Subjective: no cough,fever, etc - Objective Vital Signs & Weight: Vital Signs (12 hours) Temp Pulse Resp BP BP Pulse Ox 11/14/20 11:09 97.7 F 83 15 166/80 H 96 11/14/20 08:30 97.9 F 82 21 H 174/75 H 95 11/14/20 08:01 79 11/14/20 08:00 79 11/14/20 05:40 98.8 F 79 24 H 150/67 H 95 Weight Admit Weight 204 lb Weight 201 lb 12.8 oz I&O: 11/13/20 11/14/20 11/15/20 06:59 06:59 06:59 Intake Total 917 Output Total 1051 400 Balance -134 -400 Result Diagrams: 11/11/20 05:51 11/11/20 05:51 Additional Labs: Accuchecks 11/14/20 11/14/20 11/13/20 10:31 05:47 20:46 POC Glucose 322 H 258 H 256 H 11/13/20 16:20 POC Glucose 253 H Hospitalist ROS - Medication Medications: Active Medications Generic Name Dose Route Start Last Admin Trade Name Freq PRN Reason Stop Dose Admin Acetaminophen 650 mg 11/10/20 01:17 11/12/20 20:38 Acetaminophen 325 Mg Tab PO 650 mg Q4H PRN Administration Headache/Fever/Mild Pain (1-3) Amlodipine Besylate 5 mg 11/10/20 21:00 11/14/20 08:00 Amlodipine 5 Mg Tab PO 5 mg BID MELVIN Administration Clonidine 0.2 mg 11/12/20 20:00 11/12/20 20:40 Clonidine 0.2mg/24 Hour Patch TD 0.2 mg Q7D MELVIN Administration Enoxaparin Sodium 40 mg 11/10/20 09:00 11/14/20 08:01 Enoxaparin Sodium 40 Mg/0.4 Ml Syringe SC 40 mg 0900 MELVIN Administration Gabapentin 100 mg 11/10/20 21:00 11/13/20 20:05 Gabapentin 100 Mg Cap PO 100 mg HS MELVIN Administration Guaifenesin 1,200 mg 11/10/20 09:00 11/14/20 08:01 Guaifenesin Er 600 Mg Tab PO 1,200 mg Q12HR MELVIN Administration Hydralazine HCl 75 mg 11/10/20 09:00 11/14/20 08:01 Hydralazine 25 Mg Tab PO 75 mg TID MELVIN Administration Hydralazine HCl 20 mg 11/10/20 12:24 11/13/20 02:41 Hydralazine 20 Mg/Ml Vial SLOW IVP 20 mg Q4H PRN Administration SBP Greater Than 180 Insulin Human Lispro 0 units 11/10/20 01:17 11/14/20 11:53 Humalog 300 Units/3 Ml Vial SC 8 unit .MODERATE SLIDING SC PRN Administration Moderate Correctional Scale Insulin Human Lispro 0 units 11/13/20 21:28 11/13/20 22:10 Humalog 300 Units/3 Ml Vial SC 3 unit .BEDTIME SLIDING SC PRN Administration Bedtime Correctional Scale Levothyroxine Sodium 50 mcg 11/11/20 06:00 11/14/20 05:43 Levothyroxine Sodium 50 Mcg Tab PO 50 mcg 0600 MELVIN Administration Losartan Potassium 25 mg 11/11/20 09:00 11/14/20 08:00 Losartan 25 Mg Tab PO 25 mg DAILY MELVIN Administration Paroxetine HCl 40 mg 11/10/20 21:00 11/13/20 20:07 Paroxetine 20 Mg Tab PO 40 mg HS MELVIN Administration Rosuvastatin Calcium 20 mg 11/10/20 21:00 11/13/20 20:06 Rosuvastatin 20 Mg Tab PO 20 mg HS MELVIN Administration Sodium Chloride 10 ml 11/10/20 09:00 11/14/20 08:03 Flush - Normal Saline 10 Ml Syringe IVF 10 ml Q12HR MELVIN Administration Zinc Sulfate 220 mg 11/10/20 09:00 11/14/20 08:01 Zinc Sulfate 220 Mg Cap PO 220 mg DAILY MELVIN Administration Hospitalist Exam Vitals: Vital Signs (12 hours) Temp Pulse Resp BP BP Pulse Ox 11/14/20 11:09 97.7 F 83 15 166/80 H 96 11/14/20 08:30 97.9 F 82 21 H 174/75 H 95 11/14/20 08:01 79 11/14/20 08:00 79 11/14/20 05:40 98.8 F 79 24 H 150/67 H 95 Weight Admit Weight 204 lb Weight 201 lb 12.8 oz General Appearance: awake alert Neck: no JVD Heart: RRR, no murmur Respiratory: CTAB Respiratory - other findings: ecept scant LLLrales Gastrointestinal: soft, normal bowel sounds Extremities: no edema Hosp A/P (1) Right lower lobe pneumonia Code(s): J18.9 - PNEUMONIA, UNSPECIFIED ORGANISM Status: Acute Qualifiers: Pneumonia type: due to Pneumococcus Qualified Code(s): J13 - Pneumonia due to Streptococcus pneumoniae (2) Anemia Code(s): D64.9 - ANEMIA, UNSPECIFIED Status: Acute Qualifiers: Anemia type: unspecified type Qualified Code(s): D64.9 - Anemia, unspecified (3) Bradycardia Code(s): R00.1 - BRADYCARDIA, UNSPECIFIED Status: Acute (4) COVID-19 virus infection Code(s): U07.1 - COVID-19 Status: Acute (5) Hypertensive urgency Code(s): I16.0 - HYPERTENSIVE URGENCY Status: Acute (6) Diabetes mellitus Code(s): E11.9 - TYPE 2 DIABETES MELLITUS WITHOUT COMPLICATIONS Status: Chronic Qualifiers: Diabetes mellitus type: type 2 Diabetes mellitus penitentiary insulin use: with filler leaf cutter long use Diabetes mellitus complication status: without complication Qualified Code(s): E11.9 - Type 2 diabetes mellitus without complications; Z79.4 - terminal block assembler (current) use of insulin (7) Dyslipidemia Code(s): E78.5 - HYPERLIPIDEMIA, UNSPECIFIED Status: Chronic (8) Parkinsons disease Code(s): G20 - PARKINSON'S DISEASE Status: Chronic - Plan COVID- no sob, etc-watch on po antibx bradycardia resolved off metoprolol HTN- cont current tx, monitor BP DM 2- cont accu/ss/ lantus held at present DC planning
[2020-11-14] MEDS: Gabapentin 100 MG CAP PO SCH (20:43)
[2020-11-14] MEDS: Rosuvastatin 20 MG TAB PO SCH (20:44)
[2020-11-14] MEDS: PARoxetine 20 MG TAB PO SCH (20:45)
[2020-11-14] MEDS: Cefdinir 300 MG CAP PO SCH (20:46)
[2020-11-14] MEDS: Acetaminophen 325 MG TAB PO PRN (20:47)
[2020-11-15] MEDS: hydrALAZINE 20 MG/ML VIAL SLOW IVP PRN (02:47)
[2020-11-15] MEDS: Levothyroxine Sodium 50 MCG TAB PO SCH (05:27)
[2020-11-15] MEDS: HumaLOG 300 UNITS/3 ML VIAL SC PRN ×3 (06:16→17:37)
[2020-11-15] MEDS: hydrALAZINE 25 MG TAB PO SCH (07:33)
[2020-11-15] MEDS: Zinc Sulfate 220 MG CAP PO SCH (07:33)
[2020-11-15] MEDS: guaiFENesin ER 600 MG TAB PO SCH (07:37)
[2020-11-15] MEDS: Losartan 25 MG TAB PO SCH (07:38)
[2020-11-15] MEDS: Amlodipine 5 MG TAB PO SCH (07:38)
[2020-11-15] MEDS: Cefdinir 300 MG CAP PO SCH (07:38)
[2020-11-15] MEDS: Enoxaparin Sodium 40 MG/0.4 ML SYRINGE SC SCH (07:38)
[2020-11-15 08:56] LABS: #Eosinphils 0.2 thou/uL (0.0-0.7); #Lymphocytes 0.9 thou/uL (1.20-3.40); #Monocytes 0.7 thou/uL (0.11-0.59); #Neutrophils 8.1 thou/uL (1.40-6.50); %Basophils 0.1 % (0.0-1.0); %Eosinophils 1.6 % (0.0-10.0); %Lymphocytes 9.1 % (21.0-51.0); %Monocytes 7.2 % (0.0-10.0); Hemoglobin 9.5 g/dL (14.0-18.0); Mean Corpuscular HGB CONC 35.1 g/dL (32.0-36.0); Mean Corpuscular Volume 85.6 fL (78.0-98.0); Mean Platelet Volume 7.3 fL (7.4-10.4); Platelet Count 298 thou/uL (130-400); RBC Distribution Width 15.4 % (11.5-14.5); Red Blood Cell (RBC) Count 3.17 mill/uL (4.70-6.10); White Blood Cell (WBC) Count 9.9 thou/uL (4.8-10.8)
[2020-11-15] MEDS ORDERED: hydrALAZINE 25 MG TAB PO SCH (09:00)
[2020-11-15 09:13] LABS: ALT (SGPT) 22 U/L (8-55); AST (SGOT) 26 U/L (5-34); Alkaline Phosphatase 55 U/L (40-110); Anion Gap 11 mmol/L (10-20); BUN (Urea Nitrogen) 12 mg/dL (8.4-25.7); Bilirubin, Total 0.9 mg/dL (0.2-1.2); CRP (Inflammatory) 2.16 mg/dL (= or < 0.5); Calc. Creatinine Clearance 86 mL/min (70-130); Calcium 8.4 mg/dL (7.8-10.44); Carbon Dioxide 29 mmol/L (23-31); Chloride 100 mmol/L (98-107); Globulin 3.5 g/dL (2.4-3.5); Glucose 261 mg/dL (80-115); Potassium 3.6 mmol/L (3.5-5.1); Protein, Total 6.5 g/dL (5.8-8.1); Sodium 136 mmol/L (136-145)
[2020-11-15 09:25] LABS: Magnesium 1.5 mg/dL (1.6-2.6); Phosphorus 3.1 mg/dL (2.3-4.7)
[2020-11-15] MEDS ORDERED: Insulin Glargine 10 UNITS in Pre-Filled Syringe 1 EACH SC SCH ×2 (09:30→21:00)
[2020-11-15] MEDS ORDERED: Magnesium Sulfate 2 GM in Sodium Chloride 0.9% 100 ML IVPB SCH (11:30)
[2020-11-15] MEDS ORDERED: Magnesium 2 GM/50 ML 2 GM in Premix Bag 1 BAG IVPB SCH (11:30)
--- NOTE | 2020-11-15 12:04 | PDOC.DS.DS ---
Provider Date of Admission: 11/11/20 12:05 Date of Discharge: 11/15/20 Admitting Provider: Luke Miles MD Primary Care Physician: Unknown Course Hospital Course: 70-year-old male with past medical history of hypertension, diabetes mellitus type 2, Parkinson's disease, custodial resident since the last 1 yea r admitted from custodial today because of reported shortness of breath. Patient denies worsening shortness of breath. He admits to cough which he states started today. He denies any sputum. He denies any sick contact. He denies any fever or chills. On arrival in the ED chest x-ray shows right basilar infiltrate. Patient has been admitted for pneumonia rule out Covid infection. Subsequently we did repeat chest x-ray after admission, which showed improved right bibasilar lung aeration, While in hospital we continued his home medication, he was given broad-spectrum antibiotic coverage with Rocephin and azithromycin initially and subsequently changed to cefdinir, before discharge patient was complaining of his left hand pain which appeared to be cellulitis, he does not have any purulent drainage or any worrisome finding, patient is already on Omnicef and we added doxycycline. After discharge he will continue all his previous medication. Patient is on room air, his vitals are stable, he is up to his baseline level, Patient seen and examined bedside today, paperwork for discharge done discharge medication reconciliation done Resuscitation Status: 11/10/20 01:17 Resuscitation Status Routine Resuscitation Status: FULL: Full Resuscitation Discussed with: patient , wants a trial of CPR but no prolonged intubation Lab Results: 11/15/20 08:35 11/15/20 08:35 Abnormal Lab Results - Last 48 hrs 11/13/20 11:23: Ferritin 746.15 H 11/14/20 14:13: C-Reactive Protein 1.87 H 11/14/20 14:13: Ferritin 845.23 H 11/14/20 14:13: D-Dimer 1.46 H 11/15/20 08:35: C-Reactive Protein 2.16 H, Albumin 3.0 L, Albumin/Globulin Ratio 0.9 L 11/15/20 08:35: RBC 3.17 L, Hgb 9.5 L, Hct 27.1 L, RDW 15.4 H, MPV 7.3 L, Rose trophils % 82.0 H, Lymphocytes % 9.1 L, Neutrophils # 8.1 H, Lymphocytes # 0.9 L, Monocytes # 0.7 H 11/15/20 08:35: D-Dimer 1.18 H 11/15/20 08:35: Magnesium 1.5 L Microbiology - Entire Visit 11/10/20 01:55 Venous blood - Right Hand Blood Culture - Final NO GROWTH IN 5 DAYS 11/10/20 01:55 Venous blood - Left Arm Blood Culture - Final NO GROWTH IN 5 DAYS Vitals: Vital Signs (12 hours) Temp Pulse Resp BP BP Pulse Ox 11/15/20 11:38 97.9 F 87 18 172/76 H 97 11/15/20 11:19 89 11/15/20 07:58 97.8 F 89 19 170/78 H 97 11/15/20 07:38 90 11/15/20 07:33 90 11/15/20 04:00 97.9 F 90 20 141/65 H 96 11/15/20 02:47 76 11/15/20 01:35 75 18 180/79 H Weight Admit Weight 204 lb Weight 202 lb Physical Exam: The patient was seen and examined on the day of discharge. General Appearance: NAD, awake alert Eye: PERRL, anicteric sclera ENT: normocephalic atraumatic, no oropharyngeal lesions Neck: supple, symmetric, no JVD, no thyromegaly Respiratory: no wheezes, no rales, no ronchi Cardiovascular: RRR, no murmur, no gallops, no rubs Gastrointestinal: soft, non-tender, non-distended, normal bowel sounds Extremities: no clubbing, no edema Extremities - other findings: Left hand thumb swelling and pain noted at the base Skin: normal turgor, no lesions Neurological: no focal deficits Musculoskeletal: normal tone, normal strength PSYCH: normal affect, normal behavior Problem (1) COVID-19 virus infection Code(s): U07.1 - COVID-19 Status: Acute Plan: Patient is on vitamin supplementation, he is on room air, he did not qualify for any specific therapy (2) Bradycardia Code(s): R00.1 - BRADYCARDIA, UNSPECIFIED Status: Resolved Plan: Likely due to medication, metoprolol was discontinued, patient was on clonidine patch while in hospital that was also discontinued upon discharge, we started on hydralazine for blood better blood pressure control, we added Coreg, he is also on digoxin, by the time of discharge he was tachycardic but he had no bradycardia further (3) Hypertensive urgency Code(s): I16.0 - HYPERTENSIVE URGENCY Status: Resolved (4) Right lower lobe pneumonia Code(s): J18.9 - PNEUMONIA, UNSPECIFIED ORGANISM Status: Acute Qualifiers: Pneumonia type: due to Pneumococcus Qualified Code(s): J13 - Pneumonia due to Streptococcus pneumoniae Plan: Patient was treated with Rocephin and azithromycin and subsequently changed to Omnicef, (5) Diabetes mellitus Code(s): E11.9 - TYPE 2 DIABETES MELLITUS WITHOUT COMPLICATIONS Status: Chronic Qualifiers: Diabetes mellitus type: type 2 Diabetes mellitus halfway insulin use: wit h halfway use Diabetes mellitus complication status: without complication Qualified Code(s): E11.9 - Type 2 diabetes mellitus without complications; Z79.4 - intermediate card tender (current) use of insulin (6) Dyslipidemia Code(s): E78.5 - HYPERLIPIDEMIA, UNSPECIFIED Status: Chronic (7) Parkinsons disease Code(s): G20 - PARKINSON'S DISEASE Status: Chronic (8) Anemia Code(s): D64.9 - ANEMIA, UNSPECIFIED Status: Chronic Qualifiers: Anemia type: unspecified type Qualified Code(s): D64.9 - Anemia, unspecified Plan Prescriptions: guaiFENesin ER [Mucinex] 600 mg PO Q12HR #14 tab Carvedilol [Coreg] 6.25 mg PO BID #60 tablet Doxycycline Monohydrate 100 mg PO BID #14 tablet hydrALAZINE HCl [Hydralazine HCl] 100 mg PO BID #60 tablet Amlodipine [Norvasc] 5 mg PO BID #60 tab Cefdinir [Omnicef] 300 mg PO BID #14 cap Ascorbic Acid [Vitamin C] 1,000 mg PO DAILY #14 tablet Zinc Sulfate 220 mg PO DAILY #14 cap Home Medications: Medication Instructions Recorded Confirmed Type Cariprazine HCl [Vraylar] 1.5 mg PO HS 11/10/20 11/10/20 History Digoxin 1 tab PO DAILY 11/10/20 11/10/20 History Folic Acid 1 mg PO DAILY 11/10/20 11/10/20 History Gabapentin 100 mg PO HS 11/10/20 11/10/20 History Insulin Aspart [Novolog Flexpen] 1 units SC AC 11/10/20 11/10/20 History Insulin Glargine,Hum.Rec.Anlog 13 unit SQ BID 11/10/20 11/10/20 History [Lantus] Levothyroxine Sodium [Synthroid] 50 mcg PO DAILY 11/10/20 11/10/20 History Losartan [Cozaar] 25 mg PO DAILY 11/10/20 11/10/20 History PARoxetine HCl [Paxil] 40 mg PO HS 11/10/20 11/10/20 History Rosuvastatin [Crestor] 20 mg PO DAILY 11/10/20 11/10/20 History Thiamine 100 mg PO DAILY 11/10/20 11/10/20 History Amlodipine [Norvasc] 5 mg PO BID #60 tab 11/15/20 Rx Ascorbic Acid [Vitamin C] 1,000 mg PO DAILY #14 tablet 11/15/20 Rx Carvedilol [Coreg] 6.25 mg PO BID #60 tablet 11/15/20 Rx Cefdinir [Omnicef] 300 mg PO BID #14 cap 11/15/20 Rx Doxycycline Monohydrate 100 mg PO BID #14 tablet 11/15/20 Rx Zinc Sulfate 220 mg PO DAILY #14 cap 11/15/20 Rx guaiFENesin ER [Mucinex] 600 mg PO Q12HR #14 tab 11/15/20 Rx hydrALAZINE HCl [Hydralazine HCl] 100 mg PO BID #60 tablet 11/15/20 Rx Allergies: No Known Allergies Allergy (Unverified 11/10/20 01:25) Activity:: Activity as Tolerated Nourishment:: Diabetic Diet Therapies:: Occupational Therapy, Physical Therapy Equipment/Supplies:: Not Applicable IV Therapy:: Not Applicable Referrals: Unknown,Unknown [Primary Care Provider] - Disposition: [facility] FACILITY Quality CORE MEASURES:: N/A
[2020-11-15] MEDS ORDERED: Carvedilol 6.25 MG TAB PO SCH (17:00)
[2020-11-15 17:30] VITALS: TEMP 98.5
[2020-11-15 17:40] VITALS: BP 183/83
[2020-11-16] MEDS ORDERED: Insulin Glargine 10 UNITS in Pre-Filled Syringe 1 EACH SC SCH (09:00)
== END 2020-11-15 20:25 | DRG 177 ==
LOC: ERS 22:08 → ERHOLD 11-10 01:17 → 2SW 11-10 18:40 → OBSVTOIN 11-11 12:05
PROVIDERS: ADMIT Internal Medicine; ATTEND Internal Medicine
DX: U07.1 COVID-19 (principal); J13 Pneumonia due to Streptococcus pneumoniae; J12.82 Pneumonia due to coronavirus disease 2019; R00.1 Bradycardia, unspecified; I16.0 Hypertensive urgency; E11.9 Type 2 diabetes mellitus without complications; E78.5 Hyperlipidemia, unspecified; G20 Parkinson's disease; D64.9 Anemia, unspecified; I10 Essential (primary) hypertension; K21.9 Gastro-esophageal reflux disease without esophagitis; F25.9 Schizoaffective disorder, unspecified; E03.9 Hypothyroidism, unspecified; Z82.49 Family history of ischemic heart disease and other diseases of the circulatory system; Z90.49 Acquired absence of other specified parts of digestive tract; Z87.891 Personal history of nicotine dependence; Z79.899 Other long term (current) drug therapy; Z79.4 Long term (current) use of insulin; Z79.890 Hormone replacement therapy
CPT/HCPCS: 0240U; 36415; 36416; 71045; 80048; 80053; 80162; 82553; 82728; 83690; 83735; 83880; 84100; 84443; 84484; 85025; 85379; 86140; 87040; 93005; 93010; 96374; J0360; J0456; J0461; J0696; J1650; J1815; J3475; J3490; J7050

== ENCOUNTER 2022-11-18 18:37 | Inpatient (IN) | payer MEDICARE, MEDICAID ==
[~2022-11-18 18:37] MED LIST: Iopamidol-370 76% 500 ML 1 ML ONE
[2022-11-18 19:06] LABS: #Eosinphils 0.1 thou/uL (0.0-0.7); #Lymphocytes 0.8 thou/uL (1.20-3.40); #Monocytes 0.3 thou/uL (0.11-0.59); #Neutrophils 4.1 thou/uL (1.40-6.50); %Basophils 0.1 % (0.0-1.0); %Eosinophils 2.3 % (0.0-10.0); %Lymphocytes 14.5 % (21.0-51.0); %Monocytes 6.1 % (0.0-10.0); Hemoglobin 7.6 g/dL (14.0-18.0); Mean Corpuscular HGB CONC 35.1 g/dL (32.0-36.0); Mean Corpuscular Hemoglobin 33.1 pg (27.0-31.0); Mean Corpuscular Volume 94.2 fl (78.0-98.0); Mean Platelet Volume 8.3 fL (7.4-10.4); Platelet Count 126 10x3/uL (130-400); RBC Distribution Width 16.2 % (11.5-14.5); Red Blood Cell (RBC) Count 2.29 mill/uL (4.70-6.10); White Blood Cell (WBC) Count 5.3 10x3/uL (4.8-10.8)
[2022-11-18 19:22] LABS: PTT 32.5 sec (22.9-36.1)
[2022-11-18 19:23] LABS: INR-International Normal Ratio 1.3; Prothrombin Time 16.5 sec (12.0-14.7)
[2022-11-18 19:30] LABS: ALT (SGPT) 8 U/L (8-55); AST (SGOT) 14 U/L (5-34); Alkaline Phosphatase 53 U/L (40-110); Anion Gap 14 mmol/L (10-20); BUN (Urea Nitrogen) 36 mg/dL (8.4-25.7); Bilirubin, Total 1.3 mg/dL (0.2-1.2); Calc. Creatinine Clearance 0 mL/min (70-130); Calcium 9.1 mg/dL (7.8-10.44); Carbon Dioxide 24 mmol/L (23-31); Chloride 105 mmol/L (98-107); Estimated GFR 33; Globulin 3.1 g/dL (2.4-3.5); Glucose 193 mg/dL (80-115); Lipase 52 U/L (8-78); Potassium 4.1 mmol/L (3.5-5.1); Protein, Total 7.1 g/dL (5.8-8.1); Sodium 139 mmol/L (136-145)
[2022-11-18] MEDS ORDERED: Pantoprazole 40 MG VIAL ONE (21:00)
[2022-11-18] MEDS ORDERED: Octreotide Acetate 100 MCG/ML VIAL ONE (22:45)
[2022-11-19 00:23] VITALS: BMI 34.3
[2022-11-19] MEDS ORDERED: Ondansetron PF 4 MG/2 ML Vial IVP PRN (01:39)
[2022-11-19] MEDS ORDERED: Dextrose 50% Abboject 50 ML SYRINGE SLOW IVP PRN (01:44)
[2022-11-19] MEDS ORDERED: Dextrose 5% in Water 1,000 ML IV PRN (01:44)
[2022-11-19] MEDS ORDERED: Carvedilol 6.25 MG TAB PO SCH ×3 (01:45→16:45)
[2022-11-19] MEDS ORDERED: hydrALAZINE 25 MG TAB PO SCH (01:45)
[2022-11-19] MEDS ORDERED: Sodium Chloride 0.9% 1,000 ML IV SCH (02:00)
[2022-11-19] MEDS: Octreotide Acetate 1,250 MCG in Sodium Chloride 0.9% 250 ML 250 ML IVPB SCH (02:33)
[2022-11-19] MEDS ORDERED: Amlodipine 5 MG TAB PO SCH (04:15)
[2022-11-19 04:40] LABS: #Eosinphils 0.2 thou/uL (0.0-0.7); #Lymphocytes 0.7 thou/uL (1.20-3.40); #Monocytes 0.5 thou/uL (0.11-0.59); #Neutrophils 5.9 thou/uL (1.40-6.50); %Basophils 0.1 % (0.0-1.0); %Lymphocytes 9.7 % (21.0-51.0); %Monocytes 7.1 % (0.0-10.0); %Neutrophils 80.1 % (42.0-75.0); Hemoglobin 7.7 g/dL (14.0-18.0); Mean Corpuscular HGB CONC 34.2 g/dL (32.0-36.0); Mean Corpuscular Hemoglobin 32.3 pg (27.0-31.0); Mean Corpuscular Volume 94.5 fl (78.0-98.0); Platelet Count 126 10x3/uL (130-400); RBC Distribution Width 16.1 % (11.5-14.5); Red Blood Cell (RBC) Count 2.39 mill/uL (4.70-6.10); White Blood Cell (WBC) Count 7.4 10x3/uL (4.8-10.8)
[2022-11-19 05:04] LABS: Anion Gap 14 mmol/L (10-20); BUN (Urea Nitrogen) 36 mg/dL (8.4-25.7); Calc. Creatinine Clearance 55 mL/min (70-130); Calcium 9.4 mg/dL (7.8-10.44); Carbon Dioxide 24 mmol/L (23-31); Chloride 106 mmol/L (98-107); Estimated GFR 36; Glucose 124 mg/dL (80-115); Iron 80 ug/dL (65-175); Iron Binding Capacity, Total 371 mcg/dL (261-462); Potassium 4.2 mmol/L (3.5-5.1); Sodium 140 mmol/L (136-145)
[2022-11-19] MEDS: Amlodipine 5 MG TAB PO SCH (08:03)
[2022-11-19] MEDS: hydrALAZINE 25 MG TAB PO SCH ×2 (08:03→20:24)
[2022-11-19] MEDS: Pantoprazole 40 MG VIAL IVP SCH ×2 (08:04→20:25)
[2022-11-19 08:10] LABS: Digoxin 1.68 ng/mL (0.8-2.0); Iron 82 ug/dL (65-175); Iron Binding Capacity, Total 375 mcg/dL (261-462)
[2022-11-19] MEDS ORDERED: Losartan 25 MG TAB PO SCH (09:00)
[2022-11-19 11:27] LABS: Hemoglobin 7.4 g/dL (14.0-18.0)
[2022-11-19 19:30] LABS: Hemoglobin 7.7 g/dL (14.0-18.0)
[2022-11-19] MEDS: Losartan 25 MG TAB PO SCH (20:24)
[2022-11-19] MEDS: rOPINIRole HCl 1 MG TAB PO SCH (20:24)
[2022-11-19] MEDS: Gabapentin 100 MG CAP PO SCH (20:25)
[2022-11-19] MEDS: Tamsulosin HCl 0.4 MG CAP PO SCH (20:25)
[2022-11-19] MEDS: Rosuvastatin 20 MG TAB PO SCH (20:25)
[2022-11-19] MEDS: HumaLOG 300 UNITS/3 ML VIAL SC PRN (20:58)
[2022-11-19] MEDS ORDERED: rOPINIRole HCl 1 MG TAB PO SCH (21:00)
[2022-11-19] MEDS ORDERED: Gabapentin 100 MG CAP PO SCH (21:00)
[2022-11-19] MEDS: traZODone HCl 50 MG TAB PO PRN (23:31)
[2022-11-20] MEDS ORDERED: cloNIDine 0.1 MG TAB PO SCH (00:30)
[2022-11-20] MEDS: Octreotide Acetate 1,250 MCG in Sodium Chloride 0.9% 250 ML 250 ML IVPB SCH (04:40)
[2022-11-20 05:18] LABS: #Eosinphils 0.1 thou/uL (0.0-0.7); #Lymphocytes 0.9 thou/uL (1.20-3.40); #Monocytes 0.6 thou/uL (0.11-0.59); #Neutrophils 5.2 thou/uL (1.40-6.50); %Basophils 0.1 % (0.0-1.0); %Eosinophils 1.2 % (0.0-10.0); %Monocytes 9.4 % (0.0-10.0); %Neutrophils 76.3 % (42.0-75.0); Hemoglobin 7.1 g/dL (14.0-18.0); Mean Corpuscular HGB CONC 34.4 g/dL (32.0-36.0); Mean Corpuscular Hemoglobin 32.5 pg (27.0-31.0); Mean Corpuscular Volume 94.4 fl (78.0-98.0); Mean Platelet Volume 7.7 fL (7.4-10.4); Platelet Count 128 10x3/uL (130-400); RBC Distribution Width 16.2 % (11.5-14.5); Red Blood Cell (RBC) Count 2.19 mill/uL (4.70-6.10); White Blood Cell (WBC) Count 6.8 10x3/uL (4.8-10.8)
[2022-11-20 05:55] LABS: Anion Gap 12 mmol/L (10-20); BUN (Urea Nitrogen) 31 mg/dL (8.4-25.7); Calc. Creatinine Clearance 56 mL/min (70-130); Calcium 8.9 mg/dL (7.8-10.44); Carbon Dioxide 24 mmol/L (23-31); Chloride 104 mmol/L (98-107); Estimated GFR 37; Glucose 178 mg/dL (80-115); Magnesium 1.9 mg/dL (1.6-2.6); Potassium 4.3 mmol/L (3.5-5.1); Sodium 136 mmol/L (136-145)
[2022-11-20] MEDS: HumaLOG 300 UNITS/3 ML VIAL SC PRN ×2 (06:00→18:42)
[2022-11-20] MEDS ORDERED: Carvedilol 6.25 MG TAB PO SCH ×2 (09:00→09:30)
[2022-11-20] MEDS ORDERED: Digoxin 0.25 MG TAB PO SCH (09:00)
[2022-11-20] MEDS: hydrALAZINE 25 MG TAB PO SCH ×2 (09:12→20:20)
[2022-11-20] MEDS: Divalproex Sodium 125 mg Sprinkle Capsule PO SCH (09:13)
[2022-11-20] MEDS: Amlodipine 5 MG TAB PO SCH (09:17)
[2022-11-20] MEDS: Losartan 25 MG TAB PO SCH ×2 (09:17→20:21)
[2022-11-20] MEDS: Thiamine 100 MG TAB PO SCH (09:17)
[2022-11-20] MEDS: Levothyroxine Sodium 50 MCG TAB PO SCH (09:18)
[2022-11-20] MEDS: Cholecalciferol 1,000 UNITS (25 MCG) TAB PO SCH (09:18)
[2022-11-20] MEDS: Pantoprazole 40 MG VIAL IVP SCH ×2 (09:19→20:21)
[2022-11-20 10:51] LABS: Hemoglobin 7.2 g/dL (14.0-18.0)
[2022-11-20] MEDS: Carvedilol 6.25 MG TAB PO SCH (20:20)
[2022-11-20] MEDS: Rosuvastatin 20 MG TAB PO SCH (20:20)
[2022-11-20] MEDS: traZODone HCl 50 MG TAB PO PRN (20:21)
[2022-11-20] MEDS: Tamsulosin HCl 0.4 MG CAP PO SCH (20:21)
[2022-11-20] MEDS: Gabapentin 100 MG CAP PO SCH (20:21)
[2022-11-20] MEDS: rOPINIRole HCl 1 MG TAB PO SCH (20:21)
[2022-11-21] MEDS ORDERED: traZODone HCl 50 MG TAB PO SCH (00:45)
[2022-11-21 05:28] LABS: Anion Gap 12 mmol/L (10-20); BUN (Urea Nitrogen) 33 mg/dL (8.4-25.7); Calc. Creatinine Clearance 58 mL/min (70-130); Calcium 8.5 mg/dL (7.8-10.44); Carbon Dioxide 25 mmol/L (23-31); Chloride 102 mmol/L (98-107); Estimated GFR 38; Glucose 214 mg/dL (80-115); Potassium 4.1 mmol/L (3.5-5.1); Sodium 135 mmol/L (136-145)
[2022-11-21] MEDS: HumaLOG 300 UNITS/3 ML VIAL SC PRN ×2 (06:33→14:43)
[2022-11-21] MEDS: Amlodipine 5 MG TAB PO SCH (08:10)
[2022-11-21] MEDS: Carvedilol 6.25 MG TAB PO SCH (08:11)
[2022-11-21] MEDS: Divalproex Sodium 125 mg Sprinkle Capsule PO SCH (08:13)
[2022-11-21] MEDS: Cholecalciferol 1,000 UNITS (25 MCG) TAB PO SCH (08:14)
[2022-11-21] MEDS: hydrALAZINE 25 MG TAB PO SCH ×3 (08:14→20:21)
[2022-11-21] MEDS: Levothyroxine Sodium 50 MCG TAB PO SCH (08:19)
[2022-11-21] MEDS: Losartan 25 MG TAB PO SCH (08:20)
[2022-11-21] MEDS: Pantoprazole 40 MG VIAL IVP SCH ×2 (08:21→20:22)
[2022-11-21] MEDS: Thiamine 100 MG TAB PO SCH (08:21)
[2022-11-21] MEDS ORDERED: GoLYTELY 4,000 ml Bottle PO SCH (08:30)
[2022-11-21] MEDS ORDERED: Losartan 25 MG TAB PO SCH (17:45)
[2022-11-21] MEDS: Acetaminophen 325 MG TAB PO PRN (20:21)
[2022-11-21] MEDS: Tamsulosin HCl 0.4 MG CAP PO SCH (20:22)
[2022-11-21] MEDS: rOPINIRole HCl 1 MG TAB PO SCH (20:22)
[2022-11-21] MEDS: Rosuvastatin 20 MG TAB PO SCH (20:22)
[2022-11-21] MEDS: Gabapentin 100 MG CAP PO SCH (20:22)
[2022-11-21] MEDS: traZODone HCl 50 MG TAB PO PRN (22:31)
[2022-11-22] MEDS: Octreotide Acetate 1,250 MCG in Sodium Chloride 0.9% 250 ML 250 ML IVPB SCH (02:47)
[2022-11-22] MEDS ORDERED: cloNIDine 0.1 MG TAB PO SCH (04:15)
[2022-11-22 05:30] LABS: #Eosinphils 0.2 thou/uL (0.0-0.7); #Lymphocytes 0.8 thou/uL (1.20-3.40); #Monocytes 0.5 thou/uL (0.11-0.59); #Neutrophils 5.1 thou/uL (1.40-6.50); %Basophils 0.3 % (0.0-1.0); %Eosinophils 3.3 % (0.0-10.0); %Lymphocytes 11.7 % (21.0-51.0); %Neutrophils 77.7 % (42.0-75.0); Hemoglobin 8.3 g/dL (14.0-18.0); Mean Corpuscular HGB CONC 34.2 g/dL (32.0-36.0); Mean Corpuscular Hemoglobin 31.7 pg (27.0-31.0); Mean Corpuscular Volume 92.7 fl (78.0-98.0); Mean Platelet Volume 7.5 fL (7.4-10.4); Platelet Count 151 10x3/uL (130-400); RBC Distribution Width 15.7 % (11.5-14.5); White Blood Cell (WBC) Count 6.6 10x3/uL (4.8-10.8)
[2022-11-22 05:56] LABS: Anion Gap 16 mmol/L (10-20); BUN (Urea Nitrogen) 26 mg/dL (8.4-25.7); Calc. Creatinine Clearance 60 mL/min (70-130); Calcium 9.2 mg/dL (7.8-10.44); Carbon Dioxide 23 mmol/L (23-31); Chloride 102 mmol/L (98-107); Estimated GFR 41; Glucose 229 mg/dL (80-115); Potassium 3.8 mmol/L (3.5-5.1); Sodium 137 mmol/L (136-145)
[2022-11-22] MEDS ORDERED: PROPOFOL 200 MG/20 ML VIAL ONE (08:20)
[2022-11-22] MEDS: hydrALAZINE 25 MG TAB PO SCH ×3 (10:47→20:51)
[2022-11-22] MEDS: Divalproex Sodium 125 mg Sprinkle Capsule PO SCH (10:49)
[2022-11-22] MEDS: Amlodipine 5 MG TAB PO SCH (10:51)
[2022-11-22] MEDS: Losartan 25 MG TAB PO SCH ×2 (10:51→20:51)
[2022-11-22] MEDS: Cholecalciferol 1,000 UNITS (25 MCG) TAB PO SCH (10:52)
[2022-11-22] MEDS: Thiamine 100 MG TAB PO SCH (10:52)
[2022-11-22] MEDS: Levothyroxine Sodium 50 MCG TAB PO SCH (10:52)
[2022-11-22] MEDS: HumaLOG 300 UNITS/3 ML VIAL SC PRN ×2 (14:42→18:36)
[2022-11-22] MEDS: Pantoprazole 40 MG VIAL IVP SCH (18:31)
[2022-11-22] MEDS: Rosuvastatin 20 MG TAB PO SCH (20:51)
[2022-11-22] MEDS: rOPINIRole HCl 1 MG TAB PO SCH (20:51)
[2022-11-22] MEDS: Gabapentin 100 MG CAP PO SCH (20:52)
[2022-11-22] MEDS: Tamsulosin HCl 0.4 MG CAP PO SCH (20:52)
[2022-11-23] MEDS: traZODone HCl 50 MG TAB PO PRN (00:03)
[2022-11-23] MEDS: Acetaminophen 325 MG TAB PO PRN (05:33)
[2022-11-23] MEDS: HumaLOG 300 UNITS/3 ML VIAL SC PRN ×4 (06:20→23:23)
[2022-11-23] MEDS: Divalproex Sodium 125 mg Sprinkle Capsule PO SCH (10:09)
[2022-11-23] MEDS: hydrALAZINE 25 MG TAB PO SCH ×3 (10:09→20:12)
[2022-11-23] MEDS: Thiamine 100 MG TAB PO SCH (10:10)
[2022-11-23] MEDS: Losartan 25 MG TAB PO SCH ×2 (10:10→20:11)
[2022-11-23] MEDS: Amlodipine 5 MG TAB PO SCH (10:10)
[2022-11-23] MEDS: Levothyroxine Sodium 50 MCG TAB PO SCH (10:11)
[2022-11-23] MEDS: Cholecalciferol 1,000 UNITS (25 MCG) TAB PO SCH (10:11)
[2022-11-23] MEDS ORDERED: Enalaprilat Dihydrate 1.25 MG/ML VIAL SLOW IVP SCH (14:45)
[2022-11-23] MEDS ORDERED: Lorazepam 0.5 MG TAB PO SCH (16:15)
[2022-11-23] MEDS: Tamsulosin HCl 0.4 MG CAP PO SCH (20:11)
[2022-11-23] MEDS: Rosuvastatin 20 MG TAB PO SCH (20:11)
[2022-11-23] MEDS: Gabapentin 100 MG CAP PO SCH (20:12)
[2022-11-23] MEDS: rOPINIRole HCl 1 MG TAB PO SCH (20:12)
[2022-11-23] MEDS: Lorazepam 0.5 MG TAB PO SCH (20:12)
[2022-11-23] MEDS: traZODone HCl 50 MG TAB PO SCH (23:22)
[2022-11-23] MEDS: CARIPRAZINE HCL 3 MG PO SCH ×4 (23:47→23:50)
[2022-11-24] MEDS: Acetaminophen 325 MG TAB PO PRN (03:31)
[2022-11-24] MEDS: HumaLOG 300 UNITS/3 ML VIAL SC PRN ×3 (05:28→18:09)
[2022-11-24] MEDS: Thiamine 100 MG TAB PO SCH (08:24)
[2022-11-24] MEDS: hydrALAZINE 25 MG TAB PO SCH ×3 (08:24→20:18)
[2022-11-24] MEDS: Losartan 25 MG TAB PO SCH ×2 (08:24→20:20)
[2022-11-24] MEDS: Amlodipine 5 MG TAB PO SCH (08:25)
[2022-11-24] MEDS: Divalproex Sodium 125 mg Sprinkle Capsule PO SCH (08:25)
[2022-11-24] MEDS: Cholecalciferol 1,000 UNITS (25 MCG) TAB PO SCH (08:26)
[2022-11-24] MEDS: Levothyroxine Sodium 50 MCG TAB PO SCH (08:28)
[2022-11-24] MEDS: Gabapentin 100 MG CAP PO SCH (20:18)
[2022-11-24] MEDS: Lorazepam 0.5 MG TAB PO SCH (20:20)
[2022-11-24] MEDS: Rosuvastatin 20 MG TAB PO SCH (20:21)
[2022-11-24] MEDS: rOPINIRole HCl 1 MG TAB PO SCH (20:21)
[2022-11-24] MEDS: Tamsulosin HCl 0.4 MG CAP PO SCH (20:21)
[2022-11-25] MEDS: Acetaminophen 325 MG TAB PO PRN (00:10)
[2022-11-25] MEDS: traZODone HCl 50 MG TAB PO SCH (00:11)
[2022-11-25] MEDS: HumaLOG 300 UNITS/3 ML VIAL SC PRN ×3 (05:52→12:36)
[2022-11-25] MEDS ORDERED: Amlodipine 5 MG TAB PO SCH (08:10)
[2022-11-25] MEDS ORDERED: Amlodipine 10 MG TAB PO SCH (09:00)
[2022-11-25] MEDS: Divalproex Sodium 125 mg Sprinkle Capsule PO SCH (09:45)
[2022-11-25] MEDS: Losartan 25 MG TAB PO SCH (09:45)
[2022-11-25] MEDS: Cholecalciferol 1,000 UNITS (25 MCG) TAB PO SCH (09:46)
[2022-11-25] MEDS: hydrALAZINE 25 MG TAB PO SCH (09:46)
[2022-11-25] MEDS: Thiamine 100 MG TAB PO SCH (09:46)
[2022-11-25] MEDS: Levothyroxine Sodium 50 MCG TAB PO SCH (09:46)
[2022-11-25 11:46] VITALS: TEMP 98
[2022-11-25 13:06] VITALS: BP 189/81
== END 2022-11-25 15:15 | DRG 378 ==
LOC: ERS 18:37 → 2NO 22:15
PROVIDERS: ADMIT Internal Medicine; ATTEND Hospitalist
PROC: 30233V1 Transfusion of Nonautologous Antihemophilic Factors into Peripheral Vein, Percutaneous Approach (ICD-10-PCS; 2022-11-20)
PROC: 0DB68ZX Excision of Stomach, Via Natural or Artificial Opening Endoscopic, Diagnostic (ICD-10-PCS; principal; 2022-11-22)
PROC: 0DB78ZX Excision of Stomach, Pylorus, Via Natural or Artificial Opening Endoscopic, Diagnostic (ICD-10-PCS; 2022-11-22)
PROC: 0DBH8ZZ Excision of Cecum, Via Natural or Artificial Opening Endoscopic (ICD-10-PCS; 2022-11-22)
PROC: 0DBN8ZX Excision of Sigmoid Colon, Via Natural or Artificial Opening Endoscopic, Diagnostic (ICD-10-PCS; 2022-11-22)
PROC: 0DBL8ZX Excision of Transverse Colon, Via Natural or Artificial Opening Endoscopic, Diagnostic (ICD-10-PCS; 2022-11-22)
DX: K29.01 Acute gastritis with bleeding (principal); I48.20 Chronic atrial fibrillation, unspecified; K86.2 Cyst of pancreas; N17.9 Acute kidney failure, unspecified; D12.3 Benign neoplasm of transverse colon; D12.0 Benign neoplasm of cecum; E78.5 Hyperlipidemia, unspecified; E11.40 Type 2 diabetes mellitus with diabetic neuropathy, unspecified; D63.8 Anemia in other chronic diseases classified elsewhere; K21.9 Gastro-esophageal reflux disease without esophagitis; D12.5 Benign neoplasm of sigmoid colon; E03.9 Hypothyroidism, unspecified; N40.0 Benign prostatic hyperplasia without lower urinary tract symptoms; F31.9 Bipolar disorder, unspecified; D69.6 Thrombocytopenia, unspecified; K86.9 Disease of pancreas, unspecified; G20 Parkinson's disease; I11.9 Hypertensive heart disease without heart failure; I45.5 Other specified heart block; F41.9 Anxiety disorder, unspecified; Z20.822 Contact with and (suspected) exposure to COVID-19; Z98.890 Other specified postprocedural states; Z80.0 Family history of malignant neoplasm of digestive organs; Z79.899 Other long term (current) drug therapy; Z79.4 Long term (current) use of insulin; Z79.890 Hormone replacement therapy; Z87.891 Personal history of nicotine dependence; R00.1 Bradycardia, unspecified
CPT/HCPCS: 36415; 36416; 36430; 74177; 74183; 80048; 80053; 80162; 82728; 83540; 83550; 83605; 83690; 83735; 83880; 84484; 85025; 85610; 85730; 86850; 86900; 86901; 88305; 88342; 93005; 93010; 96374; C9113; J1815; J2354; J2704; J7050; P9016; Q9967; U0003; U0005

== ENCOUNTER 2023-03-11 23:11 | Inpatient (IN) | payer MEDICARE, MEDICAID ==
[2023-03-11 23:32] LABS: #Eosinphils 0.2 thou/uL (0.0-0.7); #Monocytes 0.6 thou/uL (0.11-0.59); #Neutrophils 4.7 thou/uL (1.40-6.50); %Basophils 0.3 % (0.0-1.0); %Eosinophils 3.4 % (0.0-10.0); %Lymphocytes 17.1 % (21.0-51.0); %Monocytes 8.9 % (0.0-10.0); %Neutrophils 69.3 % (42.0-75.0); Hemoglobin 8.2 g/dL (14.0-18.0); Mean Corpuscular HGB CONC 34.5 g/dL (32.0-36.0); Mean Corpuscular Hemoglobin 32.3 pg (27.0-31.0); Mean Corpuscular Volume 93.7 fl (78.0-98.0); Mean Platelet Volume 9.3 fL (7.4-10.4); Platelet Count 130 10x3/uL (130-400); RBC Distribution Width 16.8 % (11.5-14.5); Red Blood Cell (RBC) Count 2.54 mill/uL (4.70-6.10); White Blood Cell (WBC) Count 6.8 10x3/uL (4.8-10.8)
[2023-03-11 23:55] LABS: ALT (SGPT) 12 U/L (8-55); AST (SGOT) 11 U/L (5-34); Albumin 4.4 g/dL (3.4-4.8); Alkaline Phosphatase 63 U/L (40-110); Anion Gap 15 mmol/L (10-20); BUN (Urea Nitrogen) 40 mg/dL (8.4-25.7); Calc. Creatinine Clearance 0 mL/min (70-130); Calcium 9.6 mg/dL (7.8-10.44); Carbon Dioxide 25 mmol/L (23-31); Chloride 103 mmol/L (98-107); Estimated GFR 27; Globulin 3.3 g/dL (2.4-3.5); Glucose 183 mg/dL (80-115); Potassium 4.7 mmol/L (3.5-5.1); Protein, Total 7.7 g/dL (5.8-8.1); Sodium 138 mmol/L (136-145)
[2023-03-12] MEDS ORDERED: Nitroglycerin 2% Ointment 1 INCH/1 GM Packet ONE
[2023-03-12] MEDS ORDERED: Aspirin Chewable 81 MG TAB ONE (01:44)
[2023-03-12] MEDS ORDERED: Acetaminophen 325 MG TAB PO PRN (02:10)
[2023-03-12] MEDS ORDERED: Dextrose 50% Abboject 50 ML SYRINGE SLOW IVP PRN (02:23)
[2023-03-12] MEDS ORDERED: Glucagon 1 MG/ML KIT IM PRN (02:23)
[2023-03-12] MEDS ORDERED: Dextrose 5% in Water 1,000 ML IV PRN (02:23)
[2023-03-12] MEDS ORDERED: Furosemide 40 MG/4 ML VIAL SLOW IVP SCH (02:30)
[2023-03-12 02:41] LABS: INR-International Normal Ratio 1.3; Prothrombin Time 16.3 sec (12.0-14.7)
[2023-03-12 02:56] LABS: Troponin I 0.025 ng/mL (< 0.028)
[2023-03-12] MEDS ORDERED: Heparin 25,000 units/D5W 500 ML ONE (03:10)
[2023-03-12] MEDS ORDERED: Heparin 10,000 UNITS/ 10 ML VIAL ONE (03:10)
[2023-03-12 04:29] LABS: #Eosinphils 0.3 thou/uL (0.0-0.7); #Monocytes 0.6 thou/uL (0.11-0.59); #Neutrophils 5.2 thou/uL (1.40-6.50); %Basophils 0.5 % (0.0-1.0); %Lymphocytes 15.1 % (21.0-51.0); %Neutrophils 71.4 % (42.0-75.0); Hemoglobin 8.2 g/dL (14.0-18.0); Mean Corpuscular HGB CONC 33.5 g/dL (32.0-36.0); Mean Corpuscular Hemoglobin 31.9 pg (27.0-31.0); Mean Corpuscular Volume 95.3 fl (78.0-98.0); Mean Platelet Volume 10.4 fL (7.4-10.4); Platelet Count 136 10x3/uL (130-400); Red Blood Cell (RBC) Count 2.57 mill/uL (4.70-6.10); White Blood Cell (WBC) Count 7.3 10x3/uL (4.8-10.8)
[2023-03-12 04:45] LABS: ALT (SGPT) 11 U/L (8-55); AST (SGOT) 12 U/L (5-34); Albumin 4.3 g/dL (3.4-4.8); Alkaline Phosphatase 59 U/L (40-110); Anion Gap 16 mmol/L (10-20); BUN (Urea Nitrogen) 42 mg/dL (8.4-25.7); Bilirubin, Total 1.2 mg/dL (0.2-1.2); Calc. Creatinine Clearance 0 mL/min (70-130); Calcium 9.4 mg/dL (7.8-10.44); Carbon Dioxide 22 mmol/L (23-31); Chloride 101 mmol/L (98-107); Estimated GFR 28; Globulin 3.1 g/dL (2.4-3.5); Glucose 236 mg/dL (80-115); Potassium 4.4 mmol/L (3.5-5.1); Protein, Total 7.4 g/dL (5.8-8.1); Sodium 135 mmol/L (136-145)
[2023-03-12] MEDS ORDERED: Heparin 25,000 units/D5W 500 ML IV SCH (04:45)
[2023-03-12] MEDS ORDERED: Heparin 10,000 UNITS/ 10 ML VIAL SLOW IVP SCH (04:45)
[2023-03-12 04:52] VITALS: BMI 36.0
[2023-03-12] MEDS: Levothyroxine Sodium 50 MCG TAB PO SCH (06:02)
[2023-03-12] MEDS ORDERED: Losartan 25 MG TAB PO SCH (09:00)
[2023-03-12] MEDS ORDERED: Apixaban 2.5 MG TAB PO SCH (09:00)
[2023-03-12] MEDS: HumaLOG 300 UNITS/3 ML VIAL SC PRN ×4 (10:00→21:22)
[2023-03-12] MEDS: hydrALAZINE 25 MG TAB PO SCH ×2 (10:04→21:14)
[2023-03-12] MEDS: Rosuvastatin 20 MG TAB PO SCH (10:05)
[2023-03-12] MEDS: Divalproex Sodium 125 mg Sprinkle Capsule PO SCH (10:09)
[2023-03-12] MEDS ORDERED: Non-Formulary Item 1 EACH (Acetaminophen [Tylenol] 325 MG Capsule) PO PRN (12:38)
[2023-03-12] MEDS ORDERED: GUAIFENESIN SF SOLN 200 MG/10 ML UDCUP PO PRN (12:38)
[2023-03-12] MEDS ORDERED: Carvedilol 6.25 MG TAB PO SCH (12:38)
[2023-03-12] MEDS ORDERED: Cyclobenzaprine 10 MG TAB PO PRN (12:38)
[2023-03-12] MEDS ORDERED: Amlodipine 5 MG TAB PO SCH (12:38)
[2023-03-12] MEDS: Sucralfate 1 GM TAB PO SCH ×3 (13:13→21:16)
[2023-03-12] MEDS ORDERED: METHYL SALICYLATE TOP PRN (13:22)
[2023-03-12] MEDS ORDERED: MENTHOL TOP PRN (13:22)
[2023-03-12] MEDS ORDERED: Lorazepam 0.5 MG TAB PO SCH (21:00)
[2023-03-12] MEDS ORDERED: Cariprazine Hcl [Vraylar] 3 MG Capsule PO SCH (21:00)
[2023-03-12] MEDS ORDERED: traZODone HCl 50 MG TAB PO SCH (21:00)
[2023-03-12] MEDS ORDERED: PARoxetine 20 MG TAB PO SCH (21:00)
[2023-03-12] MEDS ORDERED: Tamsulosin HCl 0.4 MG CAP PO SCH (21:00)
[2023-03-12] MEDS ORDERED: Gabapentin 100 MG CAP PO SCH (21:00)
[2023-03-12] MEDS ORDERED: rOPINIRole HCl 1 MG TAB PO SCH (21:00)
[2023-03-12] MEDS: Carvedilol 6.25 MG TAB PO SCH (21:14)
[2023-03-12] MEDS: Losartan 25 MG TAB PO SCH (21:15)
[2023-03-12] MEDS: Insulin Glargine 30 UNITS/0.3 ML VIAL SC SCH (21:16)
[2023-03-13] MEDS: Levothyroxine Sodium 50 MCG TAB PO SCH (06:05)
[2023-03-13] MEDS: HumaLOG 300 UNITS/3 ML VIAL SC PRN (06:05)
[2023-03-13] MEDS ORDERED: Thiamine 100 MG TAB PO SCH (09:00)
[2023-03-13] MEDS ORDERED: Furosemide 20 MG TAB PO SCH (09:00)
[2023-03-13] MEDS ORDERED: Vit A,C & E/Lutein/Minerals Tablet PO SCH (09:00)
[2023-03-13] MEDS ORDERED: Digoxin 0.25 MG TAB PO SCH (09:00)
[2023-03-13] MEDS ORDERED: Apixaban 2.5 MG TAB PO SCH ×3 (09:00→21:00)
[2023-03-13] MEDS ORDERED: Famotidine 20 MG TAB PO SCH (09:00)
[2023-03-13] MEDS ORDERED: Folic Acid 1 MG TAB PO SCH (09:00)
[2023-03-13] MEDS ORDERED: Amlodipine 5 MG TAB PO SCH (09:00)
[2023-03-13] MEDS ORDERED: Loratadine 10 MG TAB PO SCH (09:00)
[2023-03-13] MEDS ORDERED: Cholecalciferol 1,000 UNITS (25 MCG) TAB PO SCH (09:00)
[2023-03-13] MEDS ORDERED: Pioglitazone HCl 45 MG TAB PO SCH (09:00)
[2023-03-13] MEDS ORDERED: Apixaban 5 MG TAB PO SCH ×2 (09:30→21:00)
[2023-03-13] MEDS: hydrALAZINE 25 MG TAB PO SCH (09:39)
[2023-03-13] MEDS: Sucralfate 1 GM TAB PO SCH ×2 (09:39→14:03)
[2023-03-13] MEDS: Carvedilol 6.25 MG TAB PO SCH (09:41)
[2023-03-13] MEDS: Rosuvastatin 20 MG TAB PO SCH (09:42)
[2023-03-13] MEDS: Losartan 25 MG TAB PO SCH (09:42)
[2023-03-13] MEDS: Insulin Glargine 30 UNITS/0.3 ML VIAL SC SCH (09:43)
[2023-03-13] MEDS: Divalproex Sodium 125 mg Sprinkle Capsule PO SCH (09:43)
[2023-03-13 10:20] LABS: Hemoglobin A1c 5.8 % (4.0-6.0)
[2023-03-13 10:40] LABS: Anion Gap 14 mmol/L (10-20); BUN (Urea Nitrogen) 36 mg/dL (8.4-25.7); Calc. Creatinine Clearance 53 mL/min (70-130); Calcium 9.8 mg/dL (7.8-10.44); Carbon Dioxide 26 mmol/L (23-31); Chloride 102 mmol/L (98-107); Estimated GFR 33; Glucose 203 mg/dL (80-115); Magnesium 1.8 mg/dL (1.6-2.6); Potassium 4.8 mmol/L (3.5-5.1); Sodium 137 mmol/L (136-145)
[2023-03-13 11:08] LABS: Phosphorus 4.6 mg/dL (2.3-4.7)
[2023-03-13 11:32] LABS: CKMB 2.2 ng/mL (0-6.6)
[2023-03-13 12:34] VITALS: BP 148/65; TEMP 97.5
== END 2023-03-13 16:45 | DRG 291 ==
LOC: ERS 23:11 → 2SW 03-12 02:08 → OBSVTOIN 03-13 12:07
PROVIDERS: ADMIT Internal Medicine; ATTEND Internal Medicine
DX: I13.0 Hypertensive heart and chronic kidney disease with heart failure and stage 1 through stage 4 chronic kidney disease, or unspecified chronic kidney disease (principal); I50.33 Acute on chronic diastolic (congestive) heart failure; N17.9 Acute kidney failure, unspecified; N18.9 Chronic kidney disease, unspecified; E03.9 Hypothyroidism, unspecified; I48.91 Unspecified atrial fibrillation; F25.9 Schizoaffective disorder, unspecified; E78.5 Hyperlipidemia, unspecified; E11.22 Type 2 diabetes mellitus with diabetic chronic kidney disease; G20 Parkinson's disease; F31.9 Bipolar disorder, unspecified; Z79.4 Long term (current) use of insulin; Z79.01 Long term (current) use of anticoagulants; Z79.899 Other long term (current) drug therapy; Z79.890 Hormone replacement therapy; Z87.891 Personal history of nicotine dependence; Z90.49 Acquired absence of other specified parts of digestive tract
CPT/HCPCS: 36415; 36416; 71045; 71250; 78451; 80048; 80053; 82553; 83036; 83735; 83880; 84100; 84443; 84484; 85025; 85379; 85610; 85730; 93005; 93010; 93306; 94760; 96374; 96375; 96376; A9540; G0378; J1644; J1815; J1940